=== PATIENT | female | born 1990 | race Caucasian/White ===

== ENCOUNTER 2016-06-09 20:27 | Emergency (ER) | payer OTHER ==
[2016-06-09 20:35] VITALS: RESP 16; TEMP 96.7
[2016-06-09] MEDS ORDERED: SODIUM CHLORIDE 0.9% 2,000 ML IV ONE (21:06)
--- NOTE | 2016-06-09 21:09 | ED ---
General Adult HPI - General Chief complaint: Abdominal Pain Stated complaint: poss kidney stones Source: patient, RN notes reviewed, old records reviewed Mode of arrival: ambulatory Limitations: no limitations - History of Present Illness Initial comments: Chief complaint and history of present illness a 26-year-old female complaint of a probable kidney stone the right side. The discomfort started yesterday in the right side coming and going down toward the right lower quadrant. Patient' s sweaty uptown walking around nausea vomiting. She also has some diarrhea today which further dehydrated her. No fever - Related Data Previous Rx's Medication Instructions Recorded Hydrocodone/Acetaminophen [[place] 1 each PO Q6HR PRN #30 tab 06/09/16 5-325] Ondansetron Odt [Zofran ODT] 4 mg PO Q8HR PRN #5 tab 06/09/16 Tamsulosin [Flomax] 0.4 mg PO DAILY #14 cap 06/09/16 Allergies Allergy/AdvReac Type Severity Reaction Status Date / Time Sulfa (Sulfonamide Allergy Unknown Unknown Verified 06/09/16 20:54 Antibiotics) Childhood Review of Systems ROS Statement: Those systems with pertinent positive or pertinent negative responses have been documented in the HPI. Review of systems no headache or visual acuity changes no chest pain or shortness of breath she has right flank that radiates down toward the right lower quadrant toward the groin area. History kidney stones in the past. Last one was several years ago. Nausea vomiting today all systems are reviewed. Past medical problems kidney stones, surgical history. Family history mother and grandfather both had kidney stones. The patient ALLERGIES to sulfa. Nonsmoker nondrinker. ROS Other: All systems not noted in ROS Statement are negative. Past Medical History Additional Past Medical History / Comment(s): kidney stones History of Any Multi-Drug Resistant Organisms: None Reported Past Surgical History: Cholecystectomy Past Anesthesia/Blood Transfusion Reactions: No Reported Reaction Past Psychological History: Depression Smoking Status: Never smoker Past Alcohol Use History: None Reported Past Drug Use History: None Reported - Past Family History Mother Family Medical History: Unable to Obtain General Exam - General Exam Comments Initial Comments: General: The patient is awake and alert, playing a right flank pain rating up with the right lower quadrant and groin area. Vital signs show temperature 96.7 pulse 85 respiratory rate 16 pulse ox 97% room air blood pressure 131/60. Mildly elevated systolic noted because of pain. Eye: Pupils are equal, round and reactive to light, extra-ocular movements are intact ; there is normal conjunctiva bilaterally. No signs of icterus. Ears, nose, mouth and throat: There are moist mucous membranes and no oral lesions. Neck: The neck is supple, . Cardiovascular: There is a regular rate and rhythm. No murmur, rub or gallop is appreciated. Respiratory: Lungs are clear to auscultation, respirations are non-labored, breath sounds are equal. No wheezes, stridor, rales, or rhonchi. Gastrointestinal: No rash noted along the area pain. Shingles discussed. Discomfort radiates from the right flank area into the right groin area. Patient's up and down and walk around my diaphoretic nausea vomiting and diarrhea. She's had kidney stones made her feel like this in the past. Back: Right flank pain radiating around the front. Musculoskeletal: No peripheral edema. No numbness no tingling. Skin: No rash Limitations: no limitations Course Vital Signs 06/09/16 06/09/16 20:32 21:58 Temperature 96.7 F L Pulse Rate 85 78 Respiratory 16 16 Rate Blood Pressure 131/60 128/74 O2 Sat by Pulse 97 98 Oximetry Medical Decision Making - Medical Decision Making Medical decision-making. Patient's urine shows greater than 180 red blood cells 20 to white cells. Trace leuk esterase. The patient's hemoglobin 15 hematocrit 46 with a white count of 15,000. Potassium 4.3 to BUN 16 creatinine 0.6 and GFR greater than 60. Glucose 96. Amylase lipase within normal limits. X-ray of the abdomen was done and reviewed by radiologist his impression is bowel gas pattern is normal. There is no sign of intestinal obstruction or pneumoperitoneum. Fecal pattern is normal. There is no sign of a mass. There are no pathologic calcifications over the kidneys. Bony structures are intact. Impression: No acute abdomen. No change. As read by Dr. Michael Patient's feeling better rate go home. She'll be placed on Zofran for nausea. [place] for pain and Flomax increased urine output. Advised to follow-up with family physician and her urologist as needed. - Lab Data Result diagrams: 06/09/16 21:16 06/09/16 21:16 Lab Results 06/09/16 06/09/1617 Range/Units 21:16 21:16 21:16 WBC 15.2 H (3.8-10.6) k/uL RBC 5.55 H (3.80-5.40) m/uL Hgb 15.0 (11.4-16.0) gm/dL Hct 46.7 H (34.0-46.0) % MCV 84.0 (80.0-100.0) fL MCH 27.0 (25.0-35.0) pg MCHC 32.1 (31.0-37.0) g/dL RDW 14.4 (11.5-15.5) % Plt Count 336 (150-450) k/uL Neutrophils % 82 % Lymphocytes % 9 % Monocytes % 6 % Eosinophils % 2 % Basophils % 1 % Neutrophils # 12.4 H (1.3-7.7) k/uL Lymphocytes # 1.4 (1.0-4.8) k/uL Monocytes # 0.9 (0-1.0) k/uL Eosinophils # 0.3 (0-0.7) k/uL Basophils # 0.2 (0-0.2) k/uL Sodium 143 (137-145) mmol/L Potassium 4.3 (3.5-5.1) mmol/L Chloride 106 (98-107) mmol/L Carbon Dioxide 23 (22-30) mmol/L Anion Gap 14 mmol/L BUN 16 (7-17) mg/dL Creatinine 0.63 (0.52-1.04) mg/dL Est GFR (MDRD) Af Amer >60 (>60 ml/min/1.73 sqM) Est GFR (MDRD) Non-Af >60 (>60 ml/min/1.73 sqM) Glucose 96 (74-99) mg/dL Calcium 9.8 (8.4-10.2) mg/dL Total Bilirubin 0.7 (0.2-1.3) mg/dL AST 33 (14-36) U/L ALT 50 (9-52) U/L Alkaline Phosphatase 96 (38-126) U/L Total Protein 8.1 (6.3-8.2) g/dL Albumin 4.9 (3.5-5.0) g/dL Amylase <30 L (30-110) U/L Lipase 63 (23-300) U/L Urine Color Light Red Urine Appearance Cloudy H (Clear) Urine pH 5.5 (5.0-8.0) Ur Specific [place] 1.024 (1.001-1.035) Urine Protein 1+ H (Negative) Urine Glucose (UA) Negative (Negative) Urine Ketones 1+ H (Negative) Urine Blood Large H (Negative) Urine Nitrate Negative (Negative) Urine Bilirubin Negative (Negative) Urine Urobilinogen <2.0 (<2.0) mg/dL Ur Leukocyte Esterase Trace H (Negative) Urine RBC >182 H (0-5) /hpf Urine WBC 22 H (0-5) /hpf Ur Squamous Epith Cells 26 H (0-4) /hpf Urine Bacteria Many H (None) /hpf Urine Mucus Few H (None) /hpf Disposition Clinical Impression: Ureterolithiasis Disposition: HOME SELF-CARE Condition: Fair Instructions: Kidney Stones (ED) Additional Instructions: Increase fluid take medications as directed follow up with her family physician return emergency room as needed follow-up with your urologist as needed as well Prescriptions: Hydrocodone/Acetaminophen [[place] 5-325] 1 each PO Q6HR PRN #30 tab PRN Reason: Pain Ondansetron Odt [Zofran ODT] 4 mg PO Q8HR PRN #5 tab PRN Reason: Nausea Tamsulosin [Flomax] 0.4 mg PO DAILY #14 cap Time of Disposition: 23:22
[2016-06-09] MEDS ORDERED: HYDROmorphone 1 MG/ML 1 ML SYRINGE IVP STA ×2 (21:12→22:22)
[2016-06-09] MEDS ORDERED: METOCLOPRAMIDE 5 MG/ML 2 ML VIAL IVP STA ×2 (21:13→23:34)
[2016-06-09] MEDS ORDERED: SODIUM CHLORIDE 0.9% 1,000 ML IV SCH (21:15)
[2016-06-09 21:31] LABS: Basophils # (A) 0.2 k/uL (0-0.2); Basophils % (A) 1 %; CH 28.2; CHCM 33.7; Eosinophils # (A) 0.3 k/uL (0-0.7); Eosinophils % (A) 2 %; HCT 46.7 % (34.0-46.0); HDW 3.06; Luc # (Auto) 0.19; Luc % (Auto) 1; Lymphocytes # (A) 1.4 k/uL (1.0-4.8); Lymphocytes % (A) 9 %; MCHC 32.1 g/dL (31.0-37.0); Mean Platelet Volume 7.1; Monocytes # (A) 0.9 k/uL (0-1.0); Monocytes % (A) 6 %; Neutrophils # (A) 12.4 k/uL (1.3-7.7); Neutrophils % (A) 82 %; RBC 5.55 m/uL (3.80-5.40); RDW 14.4 % (11.5-15.5); WBC 15.2 k/uL (3.8-10.6); WBC (Perox) 15.13
[2016-06-09 21:38] LABS: ALT 50 U/L (9-52); AST 33 U/L (14-36); Alkaline Phosphatase 96 U/L (38-126); Amylase <30 U/L (30-110); Anion Gap 14 mmol/L; Blood Urea Nitrogen 16 mg/dL (7-17); Calcium 9.8 mg/dL (8.4-10.2); Carbon Dioxide 23 mmol/L (22-30); Chloride 106 mmol/L (98-107); Glucose 96 mg/dL (74-99); Non-African American GFR(MDRD) >60 (>60 ml/min/1.73 sqM); Potassium 4.3 mmol/L (3.5-5.1); Sodium 143 mmol/L (137-145); Total Bilirubin 0.7 mg/dL (0.2-1.3); Total Protein 8.1 g/dL (6.3-8.2)
[2016-06-09 21:42] LABS: Appearance,Urine Cloudy (Clear); Bacteria,Urine Many /hpf; Bilirubin,Urine Negative (Negative); Glucose,Urine (UA) Negative (Negative); Ketones,Urine 1+ (Negative); Leukocyte Esterase,Urine Trace (Negative); Mucus,Urine Few /hpf; Nitrite,Urine Negative (Negative); PH, Urine 5.5 (5.0-8.0); Particle Count 19322; Protein,Urine 1+ (Negative); RBC,Urine >182 /hpf (0-5); Specific Gravity,Urine 1.024 (1.001-1.035); Squamous Epithelial Cell,Urine 26 /hpf (0-4); UA Billing (MACRO vs. MICRO) MICRO; Urobilinogen,Urine <2.0 mg/dL (<2.0); WBC,Urine 22 /hpf (0-5)
--- NOTE | 2016-06-09 22:03 | XR ---
EXAMINATION TYPE: XR abdomen 2V DATE OF EXAM: 06/09/2016 9:54 PM COMPARISON: 06/20/2015 HISTORY: Right-sided abdominal pain TECHNIQUE: 3 views FINDINGS: Bowel gas pattern is normal. There is no sign of intestinal obstruction or pneumoperitoneum . Fecal pattern is normal. There is no sign of a mass. There are no pathologic calcifications over th e kidneys. Bony structures are intact. IMPRESSION: Nonacute abdomen. No change.
[2016-06-09 23:28] VITALS: BP 116/68; PULSE 70
== END 2016-06-09 23:53 | disposition home or self-care (01) ==
LOC: EC 20:27
DX: N20.1 Calculus of ureter (principal); Z87.442 Personal history of urinary calculi; Z88.2 Allergy status to sulfonamides
CPT/HCPCS: 99284; 96374; 96375; 96376 ×2; 96361 ×3; 36415; 80053; 82150; 83690; 85025; 81001; 87086; 74020; J2765; J1170

== ENCOUNTER 2017-07-26 04:15 | Emergency (ER) | payer BC, OTHER ==
[2017-07-26] MEDS ORDERED: SODIUM CHLORIDE 0.9% 1,000 ML IV STA (04:33)
[2017-07-26] MEDS ORDERED: KETOROLAC 30 MG/ML 1 ML VIAL IVP STA (04:33)
[2017-07-26] MEDS ORDERED: ONDANSETRON 4 MG/2 ML VIAL IVP STA (04:33)
[2017-07-26] MEDS ORDERED: MORPHINE SULFATE 4 MG/ML SYRINGE IV STA (04:33)
--- NOTE | 2017-07-26 04:36 | ED ---
General Adult HPI - General Chief complaint: Abdominal Pain Stated complaint: Possible Kidney Stone Time Seen by Provider: 07/26/17 04:15 Source: patient, RN notes reviewed Mode of arrival: ambulatory Limitations: no limitations - History of Present Illness Initial comments: This is a 27 her old female presents emergency Department stating she's had kidney stones in the past per patient comes in today stating that she has had pain starting on the left back on Thursday and radiated around to the front the pain seemed to subside but this morning he woke up in the middle the night and it was down by her suprapubic region. Patient states was unbearable so she came to the emergency department. Patient denies any nausea or vomiting per patient denies diarrhea. Patient states palpating the abdomen does not seem to make it worse. Patient states the pain does come and go and when it comes is extremely strong. Patient denies any hematuria or urinary frequency. Patient denies any fever chills. - Related Data Previous Rx's Medication Instructions Recorded Hydrocodone/Acetaminophen [[place] 1 each PO Q6HR PRN #30 tab 06/09/16 5-325] Ondansetron Odt [Zofran ODT] 4 mg PO Q8HR PRN #5 tab 06/09/16 Tamsulosin [Flomax] 0.4 mg PO DAILY #14 cap 06/09/16 Hydrocodone/Acetaminophen [[place] 1 each PO Q4HR PRN #20 tab 07/26/17 5-325] Ketorolac [Toradol] 10 mg PO Q6HR #15 tab 07/26/17 Allergies Allergy/AdvReac Type Severity Reaction Status Date / Time Sulfa (Sulfonamide Allergy Unknown Unknown Verified 07/26/17 04:22 Antibiotics) Childhood Review of Systems ROS Statement: Those systems with pertinent positive or pertinent negative responses have been documented in the HPI. ROS Other: All systems not noted in ROS Statement are negative. Past Medical History Additional Past Medical History / Comment(s): kidney stones History of Any Multi-Drug Resistant Organisms: None Reported Past Surgical History: Cholecystectomy Past Anesthesia/Blood Transfusion Reactions: No Reported Reaction Past Psychological History: Depression Smoking Status: Never smoker Past Alcohol Use History: None Reported Past Drug Use History: None Reported - Past Family History Mother Family Medical History: Unable to Obtain General Exam - General Exam Comments Initial Comments: GENERAL: Patient is well-developed and well-nourished. Patient is nontoxic and well- hydrated and is in moderate distress. ENT: Neck is soft and supple. No significant lymphadenopathy is noted. Oropharynx is clear. Moist mucous membranes. Neck has full range of motion without eliciting any pain. EYES: The sclera were anicteric and conjunctiva were pink and moist. Extraocular movements were intact and pupils were equal round and reactive to light. Eyelids were unremarkable. PULMONARY: Unlabored respirations. Good breath sounds bilaterally. No audible rales rhonchi or wheezing was noted. CARDIOVASCULAR: There is a regular rate and rhythm without any murmurs gallops or rubs. ABDOMEN: Soft and nontender with normal bowel sounds. No palpable organomegaly was noted. There is no palpable pulsatile mass. SKIN: Skin is clear with no lesions or rashes and otherwise unremarkable. NEUROLOGIC: Patient is alert and oriented x3. Cranial nerves II through XII are grossly intact. Motor and sensory are also intact. Normal speech, volume and content. Symmetrical smile. MUSCULOSKELETAL: Normal extremities with adequate strength and full range of motion. LYMPHATICS: No significant lymphadenopathy is noted PSYCHIATRIC: Normal psychiatric evaluation. Limitations: no limitations Course Vital Signs 07/26/17 04:17 Temperature 97 F L Pulse Rate 80 Respiratory 20 Rate O2 Sat by Pulse 99 Oximetry Medical Decision Making - Medical Decision Making CT shows a kidney stone. - Lab Data Result diagrams: 07/26/17 04:38 07/26/17 04:38 Lab Results 07/26/17 07/26/17 07/26/17 Range/Units 04:38 04:38 04:41 WBC 9.1 (3.8-10.6) k/uL RBC 4.91 (3.80-5.40) m/uL Hgb 14.2 (11.4-16.0) gm/dL Hct 43.0 (34.0-46.0) % MCV 87.5 (80.0-100.0) fL MCH 28.9 (25.0-35.0) pg MCHC 33.0 (31.0-37.0) g/dL RDW 13.6 (11.5-15.5) % Plt Count 355 (150-450) k/uL Neutrophils % 56 % Lymphocytes % 32 % Monocytes % 6 % Eosinophils % 3 % Basophils % 1 % Neutrophils # 5.1 (1.3-7.7) k/uL Lymphocytes # 2.9 (1.0-4.8) k/uL Monocytes # 0.6 (0-1.0) k/uL Eosinophils # 0.3 (0-0.7) k/uL Basophils # 0.1 (0-0.2) k/uL Sodium 144 (137-145) mmol/L Potassium 4.0 (3.5-5.1) mmol/L Chloride 107 (98-107) mmol/L Carbon Dioxide 25 (22-30) mmol/L Anion Gap 12 mmol/L BUN 14 (7-17) mg/dL Creatinine 0.65 (0.52-1.04) mg/dL Est GFR (MDRD) Af Amer >60 (>60 ml/min/1.73 sqM) Est GFR (MDRD) Non-Af >60 (>60 ml/min/1.73 sqM) Glucose 110 H (74-99) mg/dL Calcium 9.4 (8.4-10.2) mg/dL Total Bilirubin 0.7 (0.2-1.3) mg/dL AST 22 (14-36) U/L ALT 36 (9-52) U/L Alkaline Phosphatase 88 (38-126) U/L Total Protein 6.9 (6.3-8.2) g/dL Albumin 4.1 (3.5-5.0) g/dL Amylase 31 (30-110) U/L Lipase 80 (23-300) U/L Urine Color Yellow Urine Appearance Cloudy H (Clear) Urine pH 5.5 (5.0-8.0) Ur Specific [place] 1.022 (1.001-1.035) Urine Protein 1+ H (Negative) Urine Glucose (UA) Negative (Negative) Urine Ketones Negative (Negative) Urine Blood Large H (Negative) Urine Nitrite Negative (Negative) Urine Bilirubin Negative (Negative) Urine Urobilinogen <2.0 (<2.0) mg/dL Ur Leukocyte Esterase Small H (Negative) Urine RBC >182 H (0-5) /hpf Urine WBC 20 H (0-5) /hpf Ur Squamous Epith Cells 8 H (0-4) /hpf Urine Bacteria Moderate H (None) /hpf Urine Mucus Many H (None) /hpf Disposition Clinical Impression: Kidney stone Disposition: HOME SELF-CARE Condition: Good Instructions: Kidney Stones (ED) Prescriptions: Hydrocodone/Acetaminophen [[place] 5-325] 1 each PO Q4HR PRN #20 tab PRN Reason: Pain Ketorolac [Toradol] 10 mg PO Q6HR #15 tab Referrals: None,Stated [Primary Care Provider] - 1-2 days Time of Disposition: 06:08
[2017-07-26 04:55] LABS: Basophils # (A) 0.1 k/uL (0-0.2); Basophils % (A) 1 %; Eosinophils # (A) 0.3 k/uL (0-0.7); Eosinophils % (A) 3 %; HGB 14.2 gm/dL (11.4-16.0); Lymphocytes # (A) 2.9 k/uL (1.0-4.8); Lymphocytes % (A) 32 %; MCH 28.9 pg (25.0-35.0); MCV 87.5 fL (80.0-100.0); Mean Platelet Volume 6.3; Monocytes # (A) 0.6 k/uL (0-1.0); Monocytes % (A) 6 %; Neutrophils # (A) 5.1 k/uL (1.3-7.7); Neutrophils % (A) 56 %; Platelet Count 355 k/uL (150-450); RBC 4.91 m/uL (3.80-5.40); RDW 13.6 % (11.5-15.5); WBC 9.1 k/uL (3.8-10.6)
[2017-07-26 04:59] LABS: Appearance,Urine Cloudy (Clear); Bacteria,Urine Moderate /hpf; Bilirubin,Urine Negative (Negative); Blood,Urine Large (Negative); Color,Urine Yellow; Glucose,Urine (UA) Negative (Negative); Ketones,Urine Negative (Negative); Leukocyte Esterase,Urine Small (Negative); Mucus,Urine Many /hpf; PH, Urine 5.5 (5.0-8.0); Protein,Urine 1+ (Negative); RBC,Urine >182 /hpf (0-5); Specific Gravity,Urine 1.022 (1.001-1.035); Squamous Epithelial Cell,Urine 8 /hpf (0-4); Urobilinogen,Urine <2.0 mg/dL (<2.0); WBC,Urine 20 /hpf (0-5)
[2017-07-26 05:15] LABS: ALT 36 U/L (9-52); AST 22 U/L (14-36); Albumin 4.1 g/dL (3.5-5.0); Alkaline Phosphatase 88 U/L (38-126); Amylase 31 U/L (30-110); Anion Gap 12 mmol/L; Blood Urea Nitrogen 14 mg/dL (7-17); Calcium 9.4 mg/dL (8.4-10.2); Carbon Dioxide 25 mmol/L (22-30); Chloride 107 mmol/L (98-107); Glucose 110 mg/dL (74-99); Lipase 80 U/L (23-300); Sodium 144 mmol/L (137-145); Total Bilirubin 0.7 mg/dL (0.2-1.3); Total Protein 6.9 g/dL (6.3-8.2)
--- NOTE | 2017-07-26 05:44 | XR ---
EXAM: XR Abdomen, 1 View CLINICAL HISTORY: ITS.REASON XR Reason: abdominal pain TECHNIQUE: Frontal supine view of the abdomen/pelvis. COMPARISON: CT abdomen pelvis performed 3 minutes prior. FINDINGS: Intraperitoneal space: No evidence of free air. Gastrointestinal tract: Unremarkable. No dilation. Bones/joints: Unremarkable. IMPRESSION: No acute findings.
--- NOTE | 2017-07-26 05:51 | CT ---
EXAM: CT Abdomen and Pelvis Without Intravenous Contrast CLINICAL HISTORY: ITS.REASON CT Reason: abdominal pain TECHNIQUE: Axial computed tomography images of the abdomen and pelvis without intravenous contrast. DLP is 752.4 mGy-cm. This CT exam was performed using one or more of the following dose reduction techniques: automated exposure control, adjustment of the mA and/or kV according to patient size, and/or use of iterative reconstruction technique. COMPARISON: Abdominal radiograph dated 06/20/2015. FINDINGS: Lower thorax: No acute findings. ABDOMEN: Liver: Unremarkable. Gallbladder and bile ducts: Unremarkable. No calcified stones. No ductal dilation. Pancreas: Unremarkable. No ductal dilation. Spleen: Unremarkable. No splenomegaly. Adrenals: Unremarkable. No mass. Kidneys and ureters: Multiple nonobstructing left renal calculi measuring up to 3 mm. 3 mm calcification in the region of the left ureterovesicular junction or layering of within the bladder likely represents a recently passed stone. There is mild left hydroureter but no hydronephrosis. Multiple nonobstructing right renal calculi measuring up to 4 mm. Stomach and bowel: Unremarkable. No obstruction. No mucosal thickening. Appendix: No findings to suggest acute appendicitis. PELVIS: Bladder: Unremarkable. No stones. Reproductive: Unremarkable as visualized. ABDOMEN and PELVIS: Intraperitoneal space: Unremarkable. No free air. No significant fluid collection. Bones/joints: No acute fracture. Soft tissues: Unremarkable. Vasculature: Unremarkable. No abdominal aortic aneurysm. Lymph nodes: Unremarkable. No enlarged lymph nodes. IMPRESSION: 3 mm calculus either at the left ureterovesical junction or layering within the bladder with very mild left hydroureter but no hydronephrosis. Small bilateral nonobstructing renal calculi.
[2017-07-26] MEDS ORDERED: MORPHINE SULFATE 4 MG/ML SYRINGE IVP STA (06:05)
[2017-07-26 06:21] VITALS: BP 108/60; PULSE 58; RESP 18; TEMP 97
== END 2017-07-26 06:29 | disposition home or self-care (01) ==
LOC: EC 04:15
DX: N20.0 Calculus of kidney (principal); Z88.2 Allergy status to sulfonamides; Z90.49 Acquired absence of other specified parts of digestive tract
CPT/HCPCS: 99284; 96374; 96375 ×2; 96376; 96361 ×2; 36415; 80053; 82150; 83690; 85025; 81001; 74018; 74176; J2270; J2405; J1885

== ENCOUNTER 2017-07-26 08:15 | Emergency (ER) | payer BC ==
[2017-07-26 08:20] VITALS: RESP 16
[2017-07-26] MEDS ORDERED: TAMSULOSIN 0.4 MG CAP.ER.24H PO STA (08:33)
[2017-07-26] MEDS ORDERED: MORPHINE SULFATE 4 MG/ML SYRINGE IVP STA (08:33)
[2017-07-26] MEDS ORDERED: SODIUM CHLORIDE 0.9% 500 ML IV STA (08:33)
[2017-07-26] MEDS ORDERED: ACET/COD 300 MG/30 MG STARTER PACK 6 TAB BTL PO STA (08:33)
--- NOTE | 2017-07-26 08:38 | ED ---
Abdominal Pain HPI - General Chief Complaint: Abdominal Pain Stated Complaint: PASSING A KIDNEY STONE Time Seen by Provider: 07/26/17 08:25 Source: patient, RN notes reviewed, old records reviewed Mode of arrival: ambulatory Limitations: no limitations - History of Present Illness Initial Comments: This patient is a 27-year-old female presents emergency department for valvular reevaluation and pain management after she was diagnosed with kidney stone. She was discharged a proximally 2 hours ago, reports that her pharmacy does not open until 9 AM. Patient reports that she was having to severe pain to wait until she sees the pharmacy for further evaluation. Patient states that she was sinus with 3 mm left kidney stone right before the bladder. She reports that every nd she feels a sharp stabbing pain in this region. Patient relates she said history multiple kidney stones in the past. She did have a full workup and CAT scan done a few hours ago. Blood work was all reviewed and within normal limits. Urinalysis showed red blood cells. Signs of infection. Patient's had no fevers or chills or vomiting. She reports he did feel nauseated. - Related Data Previous Rx's Medication Instructions Recorded Hydrocodone/Acetaminophen [[place] 1 each PO Q4HR PRN #20 tab 07/26/17 5-325] Ketorolac [Toradol] 10 mg PO Q6HR #15 tab 07/26/17 Tamsulosin [Flomax] 0.4 mg PO DAILY #10 cap 07/26/17 Allergies Allergy/AdvReac Type Severity Reaction Status Date / Time Sulfa (Sulfonamide Allergy Unknown Unknown Verified 07/26/17 08:20 Antibiotics) Childhood Review of Systems ROS Statement: Those systems with pertinent positive or pertinent negative responses have been documented in the HPI. ROS Other: All systems not noted in ROS Statement are negative. Past Medical History Additional Past Medical History / Comment(s): kidney stones History of Any Multi-Drug Resistant Organisms: None Reported Past Surgical History: Cholecystectomy Past Anesthesia/Blood Transfusion Reactions: No Reported Reaction Past Psychological History: Depression Smoking Status: Never smoker Past Alcohol Use History: None Reported Past Drug Use History: None Reported - Past Family History Mother Family Medical History: Unable to Obtain General Exam - General Exam Comments Initial Comments: This patient is a 27-year-old female. No acute distress. Limitations: no limitations General appearance: alert, in no apparent distress Head exam: Present: atraumatic, normocephalic, normal inspection Eye exam: Present: normal appearance ENT exam: Present: normal exam, mucous membranes moist Neck exam: Present: normal inspection. Absent: tenderness, meningismus, lymphadenopathy Respiratory exam: Present: normal lung sounds bilaterally. Absent: respiratory distress, wheezes, rales, rhonchi, stridor Cardiovascular Exam: Present: regular rate, normal rhythm, normal heart sounds. Absent: systolic murmur, diastolic murmur, rubs, gallop, clicks GI/Abdominal exam: Present: soft, tenderness (Left-sided lower quadrant/ suprapubic tenderness.), normal bowel sounds. Absent: distended, guarding, rebound, rigid Extremities exam: Present: normal inspection, full ROM, normal capillary refill. Absent: tenderness, pedal edema, joint swelling, calf tenderness Back exam: Present: normal inspection, CVA tenderness (L) Neurological exam: Present: alert, oriented X3, CN II-XII intact Psychiatric exam: Present: normal affect, normal mood Skin exam: Present: warm, dry, intact, normal color. Absent: rash Course Vital Signs 07/26/17 08:17 Temperature 97.8 F Pulse Rate 89 Respiratory 16 Rate Blood Pressure 144/71 O2 Sat by Pulse 100 Oximetry Medical Decision Making - Medical Decision Making This is a 27-year-old female for revisit for kidney stone pain. She was discharged here a few hours ago diagnosis of kidney stone. Discharged with pain medicine however she could not "pharmacy and filled. She is here for pain management. At this time patient appears in no acute distress. Patient is given another liter bolus and pain medicine. Discussed that she had laboratory done a few hours ago no need to repeat it at this time. Patient also was given Flomax. I will discharge her with prescription for Flomax to help with her pain is well. Discussed appropriate follow-up with urology. understands treatment plan will comply. Return parameters were discussed. Disposition Clinical Impression: Ureteral stone Disposition: HOME SELF-CARE Condition: Good Instructions: Ureteral Stones (ED) Additional Instructions: Patient advised to follow-up with primary care provider. Return to emergency department if any alarming signs or symptoms occur. Follow-up with urology as well. Rest, remain hydrated. Take the pain medicine as prescribed. Prescriptions: Tamsulosin [Flomax] 0.4 mg PO DAILY #10 cap Referrals: None,Stated [Primary Care Provider] - 1-2 days Margarito Rubin MD [STAFF PHYSICIAN] - 1-2 days Time of Disposition: 09:13
[2017-07-26 09:26] VITALS: BP 108/52; PULSE 67; TEMP 98
== END 2017-07-26 09:24 | disposition home or self-care (01) ==
LOC: EC 08:15
DX: N20.2 Calculus of kidney with calculus of ureter (principal); Z88.2 Allergy status to sulfonamides; Z90.49 Acquired absence of other specified parts of digestive tract
CPT/HCPCS: 99284; 96374; 96361; J2270

== ENCOUNTER 2018-01-22 13:37 | Emergency (ER) | payer BC, OTHER ==
[2018-01-22 14:49] VITALS: TEMP 98.1
[2018-01-22 15:12] LABS: Appearance,Urine Cloudy (Clear); Bacteria,Urine Few /hpf; Bilirubin,Urine Negative (Negative); Blood,Urine Large (Negative); Color,Urine Light Yellow; Glucose,Urine (UA) Negative (Negative); Ketones,Urine Negative (Negative); Leukocyte Esterase,Urine Negative (Negative); Mucus,Urine Rare /hpf; Nitrite,Urine Negative (Negative); PH, Urine 6.5 (5.0-8.0); Protein,Urine Negative (Negative); RBC,Urine >182 /hpf (0-5); Specific Gravity,Urine 1.009 (1.001-1.035); Squamous Epithelial Cell,Urine 3 /hpf (0-4); Urobilinogen,Urine <2.0 mg/dL (<2.0)
[2018-01-22 15:25] LABS: Basophils # (A) 0.1 k/uL (0-0.2); Basophils % (A) 1 %; Eosinophils # (A) 0.3 k/uL (0-0.7); Eosinophils % (A) 3 %; HGB 14.3 gm/dL (11.4-16.0); Lymphocytes # (A) 2.3 k/uL (1.0-4.8); Lymphocytes % (A) 25 %; MCH 28.6 pg (25.0-35.0); MCHC 33.4 g/dL (31.0-37.0); MCV 85.7 fL (80.0-100.0); Mean Platelet Volume 6.5; Monocytes # (A) 0.4 k/uL (0-1.0); Monocytes % (A) 5 %; Neutrophils # (A) 6.1 k/uL (1.3-7.7); Neutrophils % (A) 66 %; Platelet Count 330 k/uL (150-450); RBC 5.01 m/uL (3.80-5.40); RDW 13.6 % (11.5-15.5); WBC 9.3 k/uL (3.8-10.6)
[2018-01-22] MEDS ORDERED: KETOROLAC 30 MG/ML 1 ML VIAL IVP STA (15:29)
[2018-01-22] MEDS ORDERED: SODIUM CHLORIDE 0.9% 1,000 ML IV ONE (15:29)
[2018-01-22] MEDS ORDERED: HYDROmorphone 0.5 MG/0.5 ML SYRINGE IVP STA (15:29)
[2018-01-22 15:33] LABS: ALT 41 U/L (9-52); AST 25 U/L (14-36); Albumin 4.3 g/dL (3.5-5.0); Alkaline Phosphatase 77 U/L (38-126); Amylase 34 U/L (30-110); Anion Gap 9 mmol/L; Blood Urea Nitrogen 13 mg/dL (7-17); Calcium 9.7 mg/dL (8.4-10.2); Carbon Dioxide 26 mmol/L (22-30); Chloride 105 mmol/L (98-107); Glucose 85 mg/dL (74-99); Lipase 45 U/L (23-300); Sodium 140 mmol/L (137-145); Total Bilirubin 0.9 mg/dL (0.2-1.3); Total Protein 7.4 g/dL (6.3-8.2)
--- NOTE | 2018-01-22 16:15 | ED ---
Abdominal Pain HPI - General Chief Complaint: Abdominal Pain Stated Complaint: Abd Pain/Vomiting Time Seen by Provider: 01/22/18 15:16 Source: patient Mode of arrival: ambulatory Limitations: no limitations - History of Present Illness Initial Comments: This is a 27 show female with a history of kidney stones who presents emergency department for left-sided flank pain. She states it's been present for the last 3 days intermittently. She states it feels similar to previous kidney stones. She states that typically she will take Flomax and fight this at home however the pain is persisted and she feels like the kidney stone is "stuck". She states that she decided come emergency department when it was getting worse and would not resolve on its own. She does admit to some nausea without vomiting. No fevers or chills. No dysuria or hematuria. No other acute complaints. - Related Data Home Medications Medication Instructions Recorded Confirmed Cetirizine HCl [Zyrtec] 10 mg PO DAILY 07/26/17 01/22/18 Previous Rx's Medication Instructions Recorded HYDROcodone/APAP 5-325MG [[place] 1 tab PO Q6HR PRN 3 Days #12 tab 01/22/18 5-325] Tamsulosin HCl [Flomax] 0.4 mg PO DAILY #14 capsule 01/22/18 Allergies Allergy/AdvReac Type Severity Reaction Status Date / Time Sulfa (Sulfonamide Allergy Unknown Unknown Verified 01/22/18 15:41 Antibiotics) Childhood Review of Systems ROS Statement: Those systems with pertinent positive or pertinent negative responses have been documented in the HPI. ROS Other: All systems not noted in ROS Statement are negative. Past Medical History Additional Past Medical History / Comment(s): kidney stones History of Any Multi-Drug Resistant Organisms: None Reported Past Surgical History: Cholecystectomy Past Anesthesia/Blood Transfusion Reactions: No Reported Reaction Past Psychological History: Depression Smoking Status: Current every day smoker Past Alcohol Use History: None Reported Past Drug Use History: None Reported - Past Family History Mother Family Medical History: Unable to Obtain General Exam - General Exam Comments Initial Comments: Constitutional: Awake alert appears uncomfortable and is pacing around the room Head: Normocephalic atraumatic Eyes: no conjunctival injection No scleral icterus EOMI Neck: No JVD Supple Heart: Regular rate rhythm normal S1-S2 no murmurs Lungs: Clear to auscultation bilaterally No wheezing No rales Abdomen: Soft nondistended nontender, there is left CVA tenderness Extremities: Non edematous DP pulses intact Radial pulses intact Neuro: A&Ox3 No focal neurologic deficits Psych: Appropriate mood and affect Limitations: no limitations Course Vital Signs 01/22/18 14:44 Temperature 98.1 F Pulse Rate 76 Respiratory 20 Rate Blood Pressure 125/65 O2 Sat by Pulse 98 Oximetry Medical Decision Making - Medical Decision Making This is a 27-year-old female who presents emergency department for left flank pain. She was found have a 6 mm left ureteral stone with mild hydronephrosis. No evidence for UTI on urinalysis. The patient's pain was controlled emergency department. She will be sent home with Flomax and [place] for pain. She was given Dr. Maldonado information for follow-up. Told to return if she has worsening symptoms or uncontrolled pain. All cautions were answered. - Lab Data Result diagrams: 01/22/18 15:15 01/22/18 15:15 Lab Results 01/22/18 01/22/18 01/22/18 Range/Units 12:57 12:57 15:15 WBC (3.8-10.6) k/uL RBC (3.80-5.40) m/uL Hgb (11.4-16.0) gm/dL Hct (34.0-46.0) % MCV (80.0-100.0) fL MCH (25.0-35.0) pg MCHC (31.0-37.0) g/dL RDW (11.5-15.5) % Plt Count (150-450) k/uL Neutrophils % % Lymphocytes % % Monocytes % % Eosinophils % % Basophils % % Neutrophils # (1.3-7.7) k/uL Lymphocytes # (1.0-4.8) k/uL Monocytes # (0-1.0) k/uL Eosinophils # (0-0.7) k/uL Basophils # (0-0.2) k/uL Sodium 140 (137-145) mmol/L Potassium 4.0 (3.5-5.1) mmol/L Chloride 105 (98-107) mmol/L Carbon Dioxide 26 (22-30) mmol/L Anion Gap 9 mmol/L BUN 13 (7-17) mg/dL Creatinine 0.70 (0.52-1.04) mg/dL Est GFR (CKD-EPI)AfAm >90 (>60 ml/min/1.73 sqM) Est GFR (CKD-EPI)NonAf >90 (>60 ml/min/1.73 sqM) Glucose 85 (74-99) mg/dL Calcium 9.7 (8.4-10.2) mg/dL Total Bilirubin 0.9 (0.2-1.3) mg/dL AST 25 (14-36) U/L ALT 41 (9-52) U/L Alkaline Phosphatase 77 (38-126) U/L Total Protein 7.4 (6.3-8.2) g/dL Albumin 4.3 (3.5-5.0) g/dL Amylase 34 (30-110) U/L Lipase 45 (23-300) U/L Urine Color Light Yellow Urine Appearance Cloudy H (Clear) Urine pH 6.5 (5.0-8.0) Ur Specific [place] 1.009 (1.001-1.035) Urine Protein Negative (Negative) Urine Glucose (UA) Negative (Negative) Urine Ketones Negative (Negative) Urine Blood Large H (Negative) Urine Nitrite Negative (Negative) Urine Bilirubin Negative (Negative) Urine Urobilinogen <2.0 (<2.0) mg/dL Ur Leukocyte Esterase Negative (Negative) Urine RBC >182 H (0-5) /hpf Ur Squamous Epith Cells 3 (0-4) /hpf Urine Bacteria Few H (None) /hpf Urine Mucus Rare H (None) /hpf Urine HCG, Qual Not Detected (Not Detectd) 01/22/18 Range/Units 15:15 WBC 9.3 (3.8-10.6) k/uL RBC 5.01 (3.80-5.40) m/uL Hgb 14.3 (11.4-16.0) gm/dL Hct 43.0 (34.0-46.0) % MCV 85.7 (80.0-100.0) fL MCH 28.6 (25.0-35.0) pg MCHC 33.4 (31.0-37.0) g/dL RDW 13.6 (11.5-15.5) % Plt Count 330 (150-450) k/uL Neutrophils % 66 % Lymphocytes % 25 % Monocytes % 5 % Eosinophils % 3 % Basophils % 1 % Neutrophils # 6.1 (1.3-7.7) k/uL Lymphocytes # 2.3 (1.0-4.8) k/uL Monocytes # 0.4 (0-1.0) k/uL Eosinophils # 0.3 (0-0.7) k/uL Basophils # 0.1 (0-0.2) k/uL Sodium (137-145) mmol/L Potassium (3.5-5.1) mmol/L Chloride (98-107) mmol/L Carbon Dioxide (22-30) mmol/L Anion Gap mmol/L BUN (7-17) mg/dL Creatinine (0.52-1.04) mg/dL Est GFR (CKD-EPI)AfAm (>60 ml/min/1.73 sqM) Est GFR (CKD-EPI)NonAf (>60 ml/min/1.73 sqM) Glucose (74-99) mg/dL Calcium (8.4-10.2) mg/dL Total Bilirubin (0.2-1.3) mg/dL AST (14-36) U/L ALT (9-52) U/L Alkaline Phosphatase (38-126) U/L Total Protein (6.3-8.2) g/dL Albumin (3.5-5.0) g/dL Amylase (30-110) U/L Lipase (23-300) U/L Urine Color Urine Appearance (Clear) Urine pH (5.0-8.0) Ur Specific [place] (1.001-1.035) Urine Protein (Negative) Urine Glucose (UA) (Negative) Urine Ketones (Negative) Urine Blood (Negative) Urine Nitrite (Negative) Urine Bilirubin (Negative) Urine Urobilinogen (<2.0) mg/dL Ur Leukocyte Esterase (Negative) Urine RBC (0-5) /hpf Ur Squamous Epith Cells (0-4) /hpf Urine Bacteria (None) /hpf Urine Mucus (None) /hpf Urine HCG, Qual (Not Detectd) Disposition Clinical Impression: Ureterolithiasis Disposition: HOME SELF-CARE Condition: Stable Instructions: Ureteral Stones (ED) Prescriptions: HYDROcodone/APAP 5-325MG [[place] 5-325] 1 tab PO Q6HR PRN 3 Days #12 tab PRN Reason: Pain Tamsulosin HCl [Flomax] 0.4 mg PO DAILY #14 capsule Is patient prescribed a controlled substance at d/c from ED?: Yes When asked, does pt state using other controlled substances?: No If prescribed controlled substance>3 days was MAPS reviewed?: Prescribed <3 Days If opioid is for acute pain is fill amount 7 days or less?: Yes If Rx opioid, was Start Talking consent form obtained?: No Referrals: Paul Granger DO [Primary Care Provider] - 1-2 days Margarito Rubin MD [STAFF PHYSICIAN] - 1-2 days
[2018-01-22] MEDS ORDERED: HYDROmorphone 1 MG/ML 1 ML SYRINGE IVP STA (17:19)
[2018-01-22] MEDS ORDERED: TAMSULOSIN 0.4 MG CAP.ER.24H PO STA (17:20)
--- NOTE | 2018-01-22 17:52 | CT ---
EXAMINATION TYPE: CT abdomen pelvis wo con DATE OF EXAM: 01/22/2018 COMPARISON: 07/26/2017 HISTORY: left flank pain, hx of renal stones CT DLP: 1000 mGycm Automated exposure control for dose reduction was used. TECHNIQUE: Helical acquisition of images was performed from the lung bases through the pelvis. FINDINGS: Lung bases are clear. There is no pleural effusion. Heart size is normal. Liver spleen pancreas appear normal. Bile ducts are not dilated. There is no adrenal mass. Gallbladde r is absent. The kidneys have normal size and contour. There is minimal left-sided hydronephrosis and hydroureter. There is 6 mm calculus in the pelvis on axial image 111 that is apparently a stone in t he lower left ureter. There are multiple calculi in both kidneys that measure up to 6 mm. There is no retroperitoneal adenopathy. Appendix appears normal. There is no ascites. There is no intestinal wall thickening. There are no dilated loops. Bladder dist ends smoothly. Uterus is anteverted. There is no free fluid in the pelvis. There is no sign of a pelv ic mass. There is no evidence of pneumoperitoneum. There is no focal bony destructive process. IMPRESSION: Multiple renal calculi. Obstructing calculus in the lower left ureter with minimal left-sided hydronephrosis and hydroureter. Normal appendix.
[2018-01-22 18:08] VITALS: BP 118/71; PULSE 51; RESP 17
== END 2018-01-22 18:15 | disposition home or self-care (01) ==
LOC: EC 13:37
DX: N13.2 Hydronephrosis with renal and ureteral calculous obstruction (principal); F17.200 Nicotine dependence, unspecified, uncomplicated; Z79.899 Other long term (current) drug therapy; Z88.2 Allergy status to sulfonamides; Z90.49 Acquired absence of other specified parts of digestive tract
CPT/HCPCS: 36415; 80053; 82150; 83690; 85025; 81001; 81025; 74176; 99284; 96374; 96375; 96376; 96361 ×2; J1885; J1170 ×2

== ENCOUNTER → 2018-03-04 | Outpatient (CLI) | payer OTHER ==
--- NOTE | 2018-03-04 13:27 | XR ---
Abdomen HISTORY: Kidney stones Frontal view of the abdomen correlated to prior exam September 25, 2017, prior CT 01/22/2018 Lung bases are clear. No evident bowel obstruction or pneumoperitoneum. Bone mineralization is normal . Oval calcification is superimposed over the lower pole of the right kidney measuring approximately 5 mm. The punctate upper pole calcification within the left kidney seen on CT is not seen definitivel y but may be present superimposed by the 12th rib on the left measures approximately 3 mm. Calcificat ions within the pelvis are present, distal left ureteral calculus likely present measuring approximat gabriela 4 mm. Slight spinal curvature. IMPRESSION: Bilateral nephrolithiasis, probable distal left ureteral calculus.
== END | disposition home or self-care (01) ==
LOC: RADXRMAIN 09:26
PROVIDERS: ATTEND Urology
DX: N20.0 Calculus of kidney (principal)
CPT/HCPCS: 74018

== ENCOUNTER → 2018-07-13 | Outpatient (CLI) | payer OTHER | LOC: LABWHC1 17:18 | PROVIDERS: ATTEND Obstetrics & Gynecology | DX: O26.819 Pregnancy related exhaustion and fatigue, unspecified trimester (principal); Z3A.00 Weeks of gestation of pregnancy not specified | CPT/HCPCS: 36415; 84702 ==

== ENCOUNTER 2018-07-21 13:04 | Emergency (ER) | payer OTHER ==
[2018-07-21 13:11] VITALS: TEMP 97.9
[2018-07-21] MEDS ORDERED: SODIUM CHLORIDE 0.9% 1,000 ML IV STA (13:38)
--- NOTE | 2018-07-21 13:58 | ED ---
General Adult HPI - General Chief complaint: Vaginal Bleeding Stated complaint: Early bleeding Time Seen by Provider: 07/21/18 13:18 Source: patient, RN notes reviewed Mode of arrival: ambulatory Limitations: no limitations - History of Present Illness Initial comments: 28-year-old female presents to the emergency department for a chief complaint of vaginal bleeding. Patient states she had 3 positive test at home. Patient states her periods are very irregular and she has not had a period since the past 3 months. She states that today she started having pelvic cramping and bleeding. She became concerned she may have a miscarriage so called her doctor who told her to present to the emergency department. Patient currently follows with Dr. Wyatt. Patient states a few weeks ago she had an hCG of 39. About a week later she had an hCG of 888.Patient has no other complaints at this time including shortness of breath, chest pain, nausea or vomiting, headache, or visual changes. - Related Data Home Medications Medication Instructions Recorded Confirmed Cetirizine HCl [Zyrtec] 10 mg PO DAILY 07/26/17 07/21/18 Jsr-Vgog-Egnzh Acid 1 cap PO DAILY 07/21/18 07/21/18 [-U Capsule (formulary)] Previous Rx's Medication Instructions Recorded Cephalexin [Keflex] 500 mg PO Q6HR 3 Days #12 cap 07/21/18 Allergies Allergy/AdvReac Type Severity Reaction Status Date / Time Sulfa (Sulfonamide Allergy Unknown Unknown Verified 07/21/18 13:38 Antibiotics) Childhood Review of Systems ROS Statement: Those systems with pertinent positive or pertinent negative responses have been documented in the HPI. ROS Other: All systems not noted in ROS Statement are negative. Past Medical History Additional Past Medical History / Comment(s): kidney stones History of Any Multi-Drug Resistant Organisms: None Reported Past Surgical History: Cholecystectomy Past Anesthesia/Blood Transfusion Reactions: No Reported Reaction Past Psychological History: Depression Smoking Status: Current every day smoker Past Alcohol Use History: None Reported Past Drug Use History: None Reported - Past Family History Mother Family Medical History: Unable to Obtain General Exam Limitations: no limitations General appearance: alert, in no apparent distress Head exam: Present: atraumatic, normocephalic, normal inspection Eye exam: Present: normal appearance, PERRL, EOMI. Absent: scleral icterus, conjunctival injection, periorbital swelling ENT exam: Present: normal exam, mucous membranes moist Neck exam: Present: normal inspection. Absent: tenderness, meningismus, lymphadenopathy Respiratory exam: Present: normal lung sounds bilaterally. Absent: respiratory distress, wheezes, rales, rhonchi, stridor Cardiovascular Exam: Present: regular rate, normal rhythm, normal heart sounds. Absent: systolic murmur, diastolic murmur, rubs, gallop, clicks GI/Abdominal exam: Present: soft, normal bowel sounds. Absent: distended, tenderness, guarding, rebound, rigid External exam: Present: other (refused) Neurological exam: Present: alert, oriented X3, CN II-XII intact Psychiatric exam: Present: normal affect, normal mood Course Vital Signs 07/21/18 13:08 Temperature 97.9 F Pulse Rate 96 Respiratory 16 Rate Blood Pressure 118/76 O2 Sat by Pulse 97 Oximetry Medical Decision Making - Medical Decision Making 28-year-old female presents for a chief clinic vaginal bleeding x 1 day. Unsure of when she became . Last had her period 3 months ago but is irregular. CBC CMP unremarkable. HCG Quant 7994 which is increased since patient's last reading of 888 approximately 8 days ago. Ultrasound does show an intrauterine [place] without CRL which is possibly's not seen due to early . Ultrasound impression shows findings that could possibly her present early gestation. Patient is already established with Dr. Wyatt. I did review her prescription to repeat her beta hCG which she will do. Discussed threatened miscarriage diagnosis. Patient aware and all questions answered. - Lab Data Result diagrams: 07/21/18 14:24 07/21/18 14:24 Lab Results 07/21/18 07/21/18 07/21/18 Range/Units 14:24 14:24 14:24 WBC 10.1 (3.8-10.6) k/uL RBC 4.70 (3.80-5.40) m/uL Hgb 13.6 (11.4-16.0) gm/dL Hct 40.6 (34.0-46.0) % MCV 86.3 (80.0-100.0) fL MCH 28.9 (25.0-35.0) pg MCHC 33.5 (31.0-37.0) g/dL RDW 14.1 (11.5-15.5) % Plt Count 307 (150-450) k/uL Neutrophils % 68 % Lymphocytes % 22 % Monocytes % 5 % Eosinophils % 2 % Basophils % 1 % Neutrophils # 6.9 (1.3-7.7) k/uL Lymphocytes # 2.2 (1.0-4.8) k/uL Monocytes # 0.5 (0-1.0) k/uL Eosinophils # 0.2 (0-0.7) k/uL Basophils # 0.1 (0-0.2) k/uL Sodium 139 (137-145) mmol/L Potassium 4.2 (3.5-5.1) mmol/L Chloride 108 H (98-107) mmol/L Carbon Dioxide 23 (22-30) mmol/L Anion Gap 8 mmol/L BUN 11 (7-17) mg/dL Creatinine 0.54 (0.52-1.04) mg/dL Est GFR (CKD-EPI)AfAm >90 (>60 ml/min/1.73 sqM) Est GFR (CKD-EPI)NonAf >90 (>60 ml/min/1.73 sqM) Glucose 89 (74-99) mg/dL Calcium 9.1 (8.4-10.2) mg/dL Total Bilirubin 0.6 (0.2-1.3) mg/dL AST 26 (14-36) U/L ALT 39 (9-52) U/L Alkaline Phosphatase 84 (38-126) U/L Total Protein 6.9 (6.3-8.2) g/dL Albumin 4.1 (3.5-5.0) g/dL HCG, Quant 7994.7 mIU/mL Urine Color Urine Appearance (Clear) Urine pH (5.0-8.0) Ur Specific [place] (1.001-1.035) Urine Protein (Negative) Urine Glucose (UA) (Negative) Urine Ketones (Negative) Urine Blood (Negative) Urine Nitrite (Negative) Urine Bilirubin (Negative) Urine Urobilinogen (<2.0) mg/dL Ur Leukocyte Esterase (Negative) Urine WBC (0-5) /hpf Ur Squamous Epith Cells (0-4) /hpf Amorphous Sediment (None) /hpf Urine Bacteria (None) /hpf Urine Mucus (None) /hpf Urine Sperm (None) /hpf Blood Type O Positive Blood Type Recheck No 07/21/18 Range/Units 14:31 WBC (3.8-10.6) k/uL RBC (3.80-5.40) m/uL Hgb (11.4-16.0) gm/dL Hct (34.0-46.0) % MCV (80.0-100.0) fL MCH (25.0-35.0) pg MCHC (31.0-37.0) g/dL RDW (11.5-15.5) % Plt Count (150-450) k/uL Neutrophils % % Lymphocytes % % Monocytes % % Eosinophils % % Basophils % % Neutrophils # (1.3-7.7) k/uL Lymphocytes # (1.0-4.8) k/uL Monocytes # (0-1.0) k/uL Eosinophils # (0-0.7) k/uL Basophils # (0-0.2) k/uL Sodium (137-145) mmol/L Potassium (3.5-5.1) mmol/L Chloride (98-107) mmol/L Carbon Dioxide (22-30) mmol/L Anion Gap mmol/L BUN (7-17) mg/dL Creatinine (0.52-1.04) mg/dL Est GFR (CKD-EPI)AfAm (>60 ml/min/1.73 sqM) Est GFR (CKD-EPI)NonAf (>60 ml/min/1.73 sqM) Glucose (74-99) mg/dL Calcium (8.4-10.2) mg/dL Total Bilirubin (0.2-1.3) mg/dL AST (14-36) U/L ALT (9-52) U/L Alkaline Phosphatase (38-126) U/L Total Protein (6.3-8.2) g/dL Albumin (3.5-5.0) g/dL HCG, Quant mIU/mL Urine Color Yellow Urine Appearance Cloudy H (Clear) Urine pH 6.5 (5.0-8.0) Ur Specific [place] 1.017 (1.001-1.035) Urine Protein Trace H (Negative) Urine Glucose (UA) Negative (Negative) Urine Ketones Negative (Negative) Urine Blood Negative (Negative) Urine Nitrite Negative (Negative) Urine Bilirubin Negative (Negative) Urine Urobilinogen <2.0 (<2.0) mg/dL Ur Leukocyte Esterase Moderate H (Negative) Urine WBC 8 H (0-5) /hpf Ur Squamous Epith Cells 45 H (0-4) /hpf Amorphous Sediment Rare H (None) /hpf Urine Bacteria Occasional H (None) /hpf Urine Mucus Occasional H (None) /hpf Urine Sperm Rare (None) /hpf Blood Type Blood Type Recheck Disposition Clinical Impression: Threatened miscarriage Disposition: HOME SELF-CARE Condition: Good Instructions (If sedation given, give patient instructions): Threatened Miscarriage (ED) Additional Instructions: Please have hCG repeated on July 23. Please follow-up with Dr. Wyatt. Please return here to the emergency department if you have any worsening symptoms. Prescriptions: Cephalexin [Keflex] 500 mg PO Q6HR 3 Days #12 cap Is patient prescribed a controlled substance at d/c from ED?: No Referrals: Paul Granger DO [Primary Care Provider] - 1-2 days Terri Wyatt DO [Doctor of Osteopathic Medicine] - 1-2 days Time of Disposition: 16:48
[2018-07-21 14:44] LABS: Basophils # (A) 0.1 k/uL (0-0.2); Basophils % (A) 1 %; Eosinophils # (A) 0.2 k/uL (0-0.7); Eosinophils % (A) 2 %; HCT 40.6 % (34.0-46.0); HGB 13.6 gm/dL (11.4-16.0); Lymphocytes # (A) 2.2 k/uL (1.0-4.8); Lymphocytes % (A) 22 %; MCH 28.9 pg (25.0-35.0); MCHC 33.5 g/dL (31.0-37.0); MCV 86.3 fL (80.0-100.0); Mean Platelet Volume 6.4; Monocytes # (A) 0.5 k/uL (0-1.0); Monocytes % (A) 5 %; Neutrophils # (A) 6.9 k/uL (1.3-7.7); Neutrophils % (A) 68 %; Platelet Count 307 k/uL (150-450); RDW 14.1 % (11.5-15.5); WBC 10.1 k/uL (3.8-10.6)
[2018-07-21 14:54] LABS: ALT 39 U/L (9-52); AST 26 U/L (14-36); Albumin 4.1 g/dL (3.5-5.0); Alkaline Phosphatase 84 U/L (38-126); Anion Gap 8 mmol/L; Blood Urea Nitrogen 11 mg/dL (7-17); Calcium 9.1 mg/dL (8.4-10.2); Carbon Dioxide 23 mmol/L (22-30); Chloride 108 mmol/L (98-107); Glucose 89 mg/dL (74-99); Potassium 4.2 mmol/L (3.5-5.1); Sodium 139 mmol/L (137-145); Total Bilirubin 0.6 mg/dL (0.2-1.3); Total Protein 6.9 g/dL (6.3-8.2)
[2018-07-21 14:58] LABS: Amorphous Sediment,Urine Rare /hpf; Appearance,Urine Cloudy (Clear); Bacteria,Urine Occasional /hpf; Bilirubin,Urine Negative (Negative); Blood,Urine Negative (Negative); Color,Urine Yellow; Glucose,Urine (UA) Negative (Negative); Ketones,Urine Negative (Negative); Leukocyte Esterase,Urine Moderate (Negative); Mucus,Urine Occasional /hpf; Nitrite,Urine Negative (Negative); PH, Urine 6.5 (5.0-8.0); Protein,Urine Trace (Negative); Specific Gravity,Urine 1.017 (1.001-1.035); Sperm,Urine Rare /hpf; Squamous Epithelial Cell,Urine 45 /hpf (0-4); Urobilinogen,Urine <2.0 mg/dL (<2.0); WBC,Urine 8 /hpf (0-5)
[2018-07-21 15:09] LABS: HCG,Quantitative Serum 7994.7 mIU/mL
--- NOTE | 2018-07-21 15:46 | US ---
EXAMINATION TYPE: Transabdominal DATE OF EXAM: 07/21/2018 2:58 PM COMPARISON: NONE CLINICAL HISTORY: Pain. Unknown LMP, spotting EXAM PERFORMED: Transvaginal (TV) and Transabdominal (TA), endovaginal scanning performed for better evaluation of the , grayscale and color Doppler imaging performed. EXAM MEASUREMENTS: GESTATIONAL AGE / DATING Dates by LMP: LMP unknown Dates by Current Scan for: Unable to date by today's study MATERNAL ANATOMY Uterus: 8.4 x 5.4 x 4.7 cm Right Ovary: 3.4 x 2.1 x 1.9 cm Left Ovary: 3.0 x 2.2 x 1.6 cm, color flow noted to the ovaries Post CDS / Adnexa: no free fluid Presence of free fluid: no Presence of corpus luteal cyst: right ovarian lesion visualized= 1.8 x 1.6 x 1.7 cm Presence of subchorionic bleed: no GESTATION / SURVEY CRL: Not visualized MSD: 1.0 cm, too early to determine dates Yolk Sac (normal less than 6mm): 2.0 mm IUP: GS and Y[place] visualized, no CRL seen Date of LMP: Unknown LMP, Beta HcG (if available): Not available at this time GS and YS visualized. No CRL seen possibly due to early . IMPRESSION: Findings could possibly represent early gestation, follow-up as indicated
[2018-07-21 17:20] VITALS: BP 126/65; PULSE 81; RESP 18
== END 2018-07-21 17:20 | disposition home or self-care (01) ==
LOC: EC 13:04
DX: O20.0 Threatened abortion (principal); Z3A.00 Weeks of gestation of pregnancy not specified; F17.200 Nicotine dependence, unspecified, uncomplicated; Z79.899 Other long term (current) drug therapy; Z88.2 Allergy status to sulfonamides
CPT/HCPCS: 36415; 76801; 76817; 80053; 81001; 84702; 85025; 86900; 86901; 87086; 96360; 96361; 99284

== ENCOUNTER → 2018-07-24 | Outpatient (CLI) | payer OTHER | END | disposition home or self-care (01) | LOC: LABWHC1 09:36 | PROVIDERS: ATTEND Physician Assistant Medical | DX: O20.0 Threatened abortion (principal); Z3A.00 Weeks of gestation of pregnancy not specified | CPT/HCPCS: 36415; 84702 ==

== ENCOUNTER 2018-12-10 12:05 | Outpatient (CLI) | payer OTHER ==
[2018-12-10 12:37] VITALS: BP 116/58; PULSE 91; RESP 18; TEMP 97.4
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
== END 2018-12-10 13:12 | disposition home or self-care (01) ==
LOC: FBPOP 12:05
PROVIDERS: ATTEND Obstetrics & Gynecology
DX: O99.89 Other specified diseases and conditions complicating pregnancy, childbirth and the puerperium (principal); G89.11 Acute pain due to trauma; Z3A.25 25 weeks gestation of pregnancy
CPT/HCPCS: 99213

== ENCOUNTER → 2019-01-10 | Outpatient (CLI) | payer OTHER ==
[2019-01-10 09:59] LABS: Basophils % (A) 0 %; Eosinophils # (A) 0.1 k/uL (0-0.7); Eosinophils % (A) 1 %; HCT 34.1 % (34.0-46.0); HGB 11.2 gm/dL (11.4-16.0); Lymphocytes # (A) 1.6 k/uL (1.0-4.8); Lymphocytes % (A) 16 %; MCH 26.8 pg (25.0-35.0); MCHC 32.8 g/dL (31.0-37.0); MCV 81.9 fL (80.0-100.0); Mean Platelet Volume 6.8; Monocytes # (A) 0.5 k/uL (0-1.0); Monocytes % (A) 6 %; Neutrophils # (A) 7.5 k/uL (1.3-7.7); Neutrophils % (A) 76 %; Platelet Count 297 k/uL (150-450); Poikilocytosis Slight; RBC 4.16 m/uL (3.80-5.40); RDW 15.3 % (11.5-15.5); WBC 9.9 k/uL (3.8-10.6)
[2019-01-10 16:35] LABS: African American GFR (CKD) 144.8 (60.0-200.0); Albumin 3.6 g/dL (3.80-4.90); Albumin/Globulin Ratio 1.89 (1.60-3.17); Anion Gap 8.7 mmol/L (4.00-12.00); BUN/Creat Ratio 11.67 Ratio (12.00-20.00); Calcium 8.6 mg/dL (8.7-10.3); Carbon Dioxide 23.3 mmol/L (21.6-31.8); Globulin 1.9 g/dL (1.6-3.3); LDL Cholesterol,Calculated 41.8 mg/dL (0.0-131.0); Potassium 4.1 mmol/L (3.5-5.5); Total Bilirubin 0.4 mg/dL (0.2-1.2); Total Protein 5.5 g/dL (6.2-8.2); VLDL Calculation 60.2 mg/dL (5.00-40.00)
== END | disposition home or self-care (01) ==
LOC: LABWHC1 09:03
PROVIDERS: ATTEND Physician Assistant
DX: Z00.00 Encounter for general adult medical examination without abnormal findings (principal)
CPT/HCPCS: 36415; 80053; 80061; 82306; 85025

== ENCOUNTER → 2019-02-12 | Outpatient (CLI) | payer OTHER ==
[2019-02-12 10:36] LABS: HCT 32.1 % (34.0-46.0); HGB 10.6 gm/dL (11.4-16.0); Hypochromasia Slight; MCH 25.9 pg (25.0-35.0); MCV 78.5 fL (80.0-100.0); Mean Platelet Volume 7.8; Platelet Count 265 k/uL (150-450); Poikilocytosis Slight; RBC 4.08 m/uL (3.80-5.40); RDW 15.6 % (11.5-15.5)
[2019-02-12 16:53] LABS: Creatinine,Urine Random 91.9 mg/dL
[2019-02-12 17:07] LABS: Total Protein,Urine Random 20.1 mg/dL (0.0-13.5)
[2019-02-12 17:11] LABS: ALT 13 U/L (8-44); AST 15 U/L (13-35); Albumin/Globulin Ratio 1.83 (1.60-3.17); Alkaline Phosphatase 113 U/L (41-126); Bilirubin, Conjugated <0.20 mg/dL (0.20-0.40); Blood Urea Nitrogen <5.0 mg/dL (9.0-27.0); Creatine Kinase <20 U/L (26-186); Globulin 1.8 g/dL (1.6-3.3); LDH 140 U/L (120-246); Total Bilirubin 0.5 mg/dL (0.2-1.2); Total Protein 5.1 g/dL (6.2-8.2)
[2019-02-14 04:57] LABS: Toxoplasma Antibody (IgG) <3.0 IU/mL (<7.2); Toxoplasma Antibody (IgM) <3.0 AU/mL (<8.0)
[2019-02-14 11:25] LABS: Parvovirus B-19 IgG Antibodies 4.41 INDEX (<=0.90); Parvovirus B-19 IgM Antibodies 0.39 INDEX (<=0.90)
== END | disposition home or self-care (01) ==
LOC: LABWHC1 10:09
PROVIDERS: ATTEND Obstetrics & Gynecology Maternal & Fetal Medicine
DX: O40.3XX1 Polyhydramnios, third trimester, fetus 1 (principal); K83.1 Obstruction of bile duct
CPT/HCPCS: 36415; 80076; 82239; 82550; 82570; 83615; 84156; 84520; 85027; 86644; 86645; 86747; 86777; 86778

== ENCOUNTER 2019-02-14 14:46 | Outpatient (CLI) | payer OTHER ==
[2019-02-14 16:16] VITALS: BP 127/70; PULSE 85; RESP 16; TEMP 96.3
--- NOTE | 2019-03-23 00:01 | P.MSEPDOC ---
Presenting Problems - Arrival Data Date of Arrival on Unit: 02/14/19 Time of Arrival on Unit: 14:46 Mode of Transport: Ambulatory - Complaint OB-Reason for Admission/Chief Complaint: Other Comment: pt arrived c/o swelling i her feet so bad that she cant put her shoes on also c/o some swelling in hands. +1-+2 pitting edema noted in feet but not legs. pt c/o a h/a all the time refles plus 1 B/P 127/70 Medical History - Information : 2 Para: 1 Term: 1 : 0 Abortions: Spontaneous or Elective: 0 Number of Living Children: 0 - Gestational Age Gestational Age by ZAHRAA (wks/days): 35 Weeks and 1 Days Review of Systems - Review of Systems Constitutional: No problems Breast: No problems ENT: No problems Cardiovascular: No problems Respiratory: No problems Gastrointestinal: No problems Genitourinary: No problems Musculoskeletal: No problems Neurological: No problems Skin: No problems Vital Signs - Temperature Temperature: 96.3 F Temperature Source: Temporal Artery Scan - Pulse Right Brachial Pulse Rate: 85 Pulse Assessment Method: Automatic Cuff - Respirations Respiratory Rate: 16 Oxygen Delivery Method: Room Air - Blood Pressure Right Arm Blood Pressure: 127/70 Blood Pressure Mean: 89 Blood Pressure Source: Automatic Cuff Medical Screen Scoring (Pre) - Cervical Exam Dilation: Exam Deferred Effacement: Exam Deferred Membranes: Intact - Uterine Contractions Frequency: > 5 minutes apart = 1 Duration: N/A Intensity: N/A - Maternal Vital Signs Maternal Temperature: N/A Maternal Blood Pressure: N/A Signs of Preeclampsia: Headache = 1 Maternal Respirations: N/A - Maternal Trauma Maternal Trauma: N/A - Assessment - Baby A Baseline FHR: 130 Heart Rate - NICHD Category: Category I (Normal) = 0 NST: Reactive Position: N/A Station: N/A - Total Score - Baby A Total Score - Baby A: 2 - Total Score - Baby B Total Score - Baby B: 2 - Total Score - Baby C Total Score - Baby C: 2 - Level of Risk - Baby A Level of Risk - Baby A: Low (0-5) - Level of Risk - Baby B Level of Risk - Baby B: Low (0-5) - Level of Risk - Baby C Level of Risk - Baby C: Low (0-5) Physician Notification (Post) - Physician Notified Physician Notified Date: 02/14/19 Physician Notified Time: 16:20 Spoke With: dr marshall New Order Received: Yes - Notification Comment Comment: serial b/p 127/70 121/63 113/65 118/66. september dischsarge to home and off feet and elevate feet while home and have pt keep scheduled appointment thursday02/16/[address] rock Disposition - Disposition OB Disposition: Discharge to home Discharge Date: 02/14/19 Discharge Time: 16:30 I agree with the RN Medical Screening Exam: Yes Risk & Benefit of care provided described in d/c instruction: Yes Diagnosis: GESTATIONAL EDEMA, THIRD TRIMESTER
== END 2019-02-14 16:39 | disposition home or self-care (01) ==
LOC: FBPOP 14:46
PROVIDERS: ATTEND Obstetrics & Gynecology
DX: O12.03 Gestational edema, third trimester (principal); Z3A.35 35 weeks gestation of pregnancy
CPT/HCPCS: 59025; 99213

== ENCOUNTER 2019-02-16 11:40 | Outpatient (CLI) | payer OTHER ==
[2019-02-16 12:16] LABS: Appearance,Urine Cloudy (Clear); Bacteria,Urine Many /hpf; Bilirubin,Urine Negative (Negative); Blood,Urine Trace (Negative); Color,Urine Yellow; Glucose,Urine (UA) Negative (Negative); Ketones,Urine 3+ (Negative); Leukocyte Esterase,Urine Small (Negative); Mucus,Urine Many /hpf; Nitrite,Urine Negative (Negative); PH, Urine 6.5 (5.0-8.0); Protein,Urine Trace (Negative); RBC,Urine 11 /hpf (0-5); Specific Gravity,Urine 1.012 (1.001-1.035); Squamous Epithelial Cell,Urine 9 /hpf (0-4); Urobilinogen,Urine <2.0 mg/dL (<2.0); WBC,Urine 16 /hpf (0-5)
[2019-02-16 13:48] LABS: ALT 16 U/L (9-52); AST 18 U/L (14-36); African American GFR (CKD) >90 (>60 ml/min/1.73 sqM); Blood Urea Nitrogen 4 mg/dL (7-17); LDH 354 U/L (313-618); Uric Acid 6.4 mg/dL (3.7-7.4)
[2019-02-16 13:57] LABS: Basophils % (A) 1 %; Eosinophils # (A) 0.1 k/uL (0-0.7); Eosinophils % (A) 1 %; HCT 32.4 % (34.0-46.0); HGB 10.5 gm/dL (11.4-16.0); Hypochromasia Slight; Lymphocytes # (A) 1.4 k/uL (1.0-4.8); Lymphocytes % (A) 18 %; MCH 25.2 pg (25.0-35.0); MCHC 32.5 g/dL (31.0-37.0); MCV 77.4 fL (80.0-100.0); Mean Platelet Volume 7.9; Microcytosis Slight; Monocytes # (A) 0.4 k/uL (0-1.0); Monocytes % (A) 6 %; Neutrophils # (A) 5.5 k/uL (1.3-7.7); Neutrophils % (A) 73 %; Platelet Count 301 k/uL (150-450); Poikilocytosis Slight; RBC 4.18 m/uL (3.80-5.40); RDW 15.7 % (11.5-15.5); WBC 7.5 k/uL (3.8-10.6)
[2019-02-16 15:47] VITALS: BP 120/76; PULSE 90; RESP 16; TEMP 97.5
--- NOTE | 2019-02-16 15:50 | US ---
EXAMINATION TYPE: US OB BPP wo non-stress DATE OF EXAM: 02/16/2019 COMPARISON: NONE CLINICAL HISTORY: Nonreactive NST. Nonreactive NST EXAM PERFORMED: Transabdominal (TA) BPP PARAMETERS: HEART RATE: 149 bpm RHYTHM: Normal NILSA: 20.6cm DIAPHRAGM IMAGED: yes BPP SCORIN. Breathin (1 episode of breathing of 30 second duration in 30 minutes of scanning time) 2. Movement: 2 (at least 3 discrete body movements in 30 minutes) 3. Tone: 2 (1 episode of active flexion/extension of limb) 4. NILSA: 2 (NILSA index > 5cm) TOTAL SCORE: 8 / 8
--- NOTE | 2019-02-18 09:20 | P.MSEPDOC ---
Presenting Problems - Arrival Data Date of Arrival on Unit: 02/16/19 Time of Arrival on Unit: 11:40 Mode of Transport: Ambulatory - Complaint OB-Reason for Admission/Chief Complaint: PIH Comment: Sent from [facility] by Dr. Wyatt for PI work up; Dr. Hedrick covering for Dr. Wyatt at time of report. Medical History - Information : 2 Para: 1 Term: 1 : 0 Abortions: Spontaneous or Elective: 0 Number of Living Children: 1 - Gestational Age Gestational Age by ZAHRAA (wks/days): 35 Weeks and 3 Days Review of Systems - Review of Systems Constitutional: No problems Breast: No problems ENT: No problems Cardiovascular: No problems Respiratory: No problems Gastrointestinal: No problems Genitourinary: No problems Musculoskeletal: No problems Neurological: No problems Skin: No problems Vital Signs - Temperature Temperature: 97.5 F Temperature Source: Temporal Artery Scan - Pulse Right Sitting Brachial Pulse Rate: 90 Pulse Assessment Method: Automatic Cuff - Respirations Respiratory Rate: 16 Oxygen Delivery Method: Room Air O2 Sat by Pulse Oximetry: 97 - Blood Pressure Right Arm Sitting Blood Pressure: 120/76 Blood Pressure Mean: 90 Blood Pressure Source: Automatic Cuff Medical Screen Scoring (Pre) - Cervical Exam Dilation: Exam Deferred Effacement: Exam Deferred Membranes: Intact - Uterine Contractions Frequency: < 36 weeks = 6 Duration: > 40 seconds = 2 Intensity: N/A - Maternal Vital Signs Maternal Temperature: N/A Maternal Blood Pressure: N/A Signs of Preeclampsia: N/A Maternal Respirations: N/A - Maternal Trauma Maternal Trauma: N/A - Assessment - Baby A Baseline FHR: 140 NST: Non-reactive = 3 Position: N/A Station: N/A - Total Score - Baby A Total Score - Baby A: 11 - Total Score - Baby B Total Score - Baby B: 8 - Total Score - Baby C Total Score - Baby C: 8 - Level of Risk - Baby A Level of Risk - Baby A: High (10+) - Level of Risk - Baby B Level of Risk - Baby B: Medium (6-9) - Level of Risk - Baby C Level of Risk - Baby C: Medium (6-9) Physician Notification (Pre) - Physician Notified Physician Notified Date: 02/16/19 Physician Notified Time: 14:20 Physician/Practitioner Notifed:: Ryley Spoke With: Ryley New Order Received: Yes - Notification Comment Comment: Reviewed pts labs, serial BP, P/C ratio; non reactive NST x 2 r/t activity; unable to keep fetus on monitor, BPP ordered. Pts contraction pattern reviewed, pt denies pain, SVE in office today by Dr. Wyatt, cervix closed. Medical Screen Scoring (Post) - Assessment - Baby A Heart Rate: 140 Physician Notification (Post) - Physician Notified Physician Notified Date: 02/16/19 Physician Notified Time: 15:35 Physician/Practitioner Notified:: Ryley Spoke With: Ryley New Order Received: Yes - Notification Comment Comment: BPP 12/30. Pt to follow up Thursday for NST and BP check at [facility]. Pt has appt with [facility] on 02/22, Dr. Wyatt 02/23. Triage d/c to be reviewed. Disposition - Disposition OB Disposition: Triage, Discharge to home I agree with the RN Medical Screening Exam: Yes Risk & Benefit of care provided described in d/c instruction: Yes Diagnosis: RELATED CONDITIONS, UNSPECIFIED, THIRD TRIMESTER (r/o preeclampsia)
== END 2019-02-16 15:32 | disposition home or self-care (01) ==
LOC: FBPOP 11:40
PROVIDERS: ATTEND Obstetrics & Gynecology
DX: O26.93 Pregnancy related conditions, unspecified, third trimester (principal); Z3A.35 35 weeks gestation of pregnancy
CPT/HCPCS: 59025; 76819; 81001; 82565; 82570; 83615; 84156; 84450; 84460; 84520; 84550; 85025; 99215

== ENCOUNTER 2019-02-27 16:06 | Inpatient (IN) | payer OTHER ==
[~2019-02-27 16:06] MED LIST: ROPIVACAINE 5MG/ML 20ML VIAL ONE; SODIUM CHLORIDE 0.9% 100 ML BAG ONE; fentaNYL (PF) 50 MCG/ML 5 ML AMP ONE
[2019-02-27] MEDS ORDERED: DINOPROSTONE 10 MG INSERT.ER VAGINAL ONE (16:20)
[2019-02-27 16:29] VITALS: BMI 40.7
[2019-02-27] MEDS ORDERED: AMPICILLIN 2,000 MG in SODIUM CHLORIDE 0.9% 100 ML IVPB STA (17:03)
[2019-02-27 17:33] LABS: Basophils % (A) 0 %; Eosinophils % (A) 0 %; HCT 32.6 % (34.0-46.0); HGB 10.7 gm/dL (11.4-16.0); Hypochromasia Slight; Lymphocytes # (A) 1.8 k/uL (1.0-4.8); Lymphocytes % (A) 17 %; MCH 25.4 pg (25.0-35.0); MCHC 32.7 g/dL (31.0-37.0); MCV 77.7 fL (80.0-100.0); Mean Platelet Volume 6.6; Monocytes # (A) 0.6 k/uL (0-1.0); Monocytes % (A) 5 %; Neutrophils # (A) 7.8 k/uL (1.3-7.7); Neutrophils % (A) 76 %; Platelet Count 301 k/uL (150-450); Poikilocytosis Moderate; RBC 4.19 m/uL (3.80-5.40); RDW 15.3 % (11.5-15.5); WBC 10.3 k/uL (3.8-10.6)
[2019-02-27 17:43] LABS: ALT 15 U/L (9-52); AST 19 U/L (14-36); African American GFR (CKD) >90 (>60 ml/min/1.73 sqM); Blood Urea Nitrogen 7 mg/dL (7-17); LDH 399 U/L (313-618); Uric Acid 6.4 mg/dL (3.7-7.4)
[2019-02-27 17:54] LABS: INR 0.9 (<1.2); Prothrombin Time 9.6 sec (9.0-12.0)
[2019-02-27] MEDS ORDERED: BUTORPHANOL 1 MG/ML 1 ML VIAL IV PRN (17:56)
[2019-02-27] MEDS: LACTATED RINGERS 1,000 ML IV SCH (18:06)
[2019-02-27 20:54] LABS: Appearance,Urine Clear (Clear); Bacteria,Urine Moderate /hpf; Bilirubin,Urine Negative (Negative); Blood,Urine Trace (Negative); Color,Urine Yellow; Glucose,Urine (UA) Negative (Negative); Ketones,Urine 3+ (Negative); Leukocyte Esterase,Urine Negative (Negative); Mucus,Urine Few /hpf; Nitrite,Urine Negative (Negative); PH, Urine 6.5 (5.0-8.0); Protein,Urine 1+ (Negative); RBC,Urine 41 /hpf (0-5); Squamous Epithelial Cell,Urine 6 /hpf (0-4); Urobilinogen,Urine <2.0 mg/dL (<2.0); WBC,Urine 11 /hpf (0-5)
[2019-02-27] MEDS: AMPICILLIN 1,000 MG in SODIUM CHLORIDE 0.9% 50 ML IVPB SCH (21:37)
[2019-02-28] MEDS: AMPICILLIN 1,000 MG in SODIUM CHLORIDE 0.9% 50 ML IVPB SCH ×5 (00:49→16:49)
[2019-02-28] MEDS: LACTATED RINGERS 1,000 ML IV SCH ×5 (03:37→17:27)
[2019-02-28] MEDS ORDERED: LIDOCAINE 0.5% (PF) 5 MG/ML (50 ML SDV) SQ PRN (03:44)
[2019-02-28] MEDS ORDERED: CARBOPROST TROMETHAMINE 250 MCG/ML 1 ML AMP IM PRN (03:44)
[2019-02-28] MEDS ORDERED: METHYLERGONOVINE 0.2 MG/ML 1 ML AMP IM PRN (03:44)
[2019-02-28] MEDS ORDERED: OXYTOCIN 10 UNIT/ML 1 ML VIAL IM PRN (03:44)
[2019-02-28] MEDS ORDERED: TERBUTALINE 1 MG/ML VIAL SQ PRN (03:44)
[2019-02-28] MEDS ORDERED: OXYTOCIN 30 UNITS/500 ML NS 30 UNIT in SALINE 1 500ML.BAG IV SCH (03:45)
[2019-02-28] MEDS ORDERED: SODIUM CHLORIDE 0.9% 100 ML BAG ONE (03:52)
[2019-02-28] MEDS ORDERED: ROPIVACAINE 5MG/ML 20ML VIAL ONE (03:52)
[2019-02-28] MEDS ORDERED: fentaNYL (PF) 50 MCG/ML 5 ML AMP ONE (03:52)
[2019-02-28] MEDS ORDERED: CITRIC ACID-SODIUM CITRATE 15 ML CUP PO ONE (17:55)
--- NOTE | 2019-02-28 18:01 | P.HPOB ---
History of Present Illness H&P Date: 02/27/19 Chief Complaint: gestational hypertension 28 year old presents at 37 weeks for induction of labor due to gestational hypertension. She had more than one blood pressure in the office and in triage that was more than either over 140 or over 90. heart tones 130 with moderate variability and reactive. Her cervix was 1-2 cm dilated, 50% effaced, -2 station. She will have us 2-stage induction of labor. Review of Systems All systems: negative Constitutional: Denies chills, Denies fever Eyes: denies blurred vision, denies pain Ears, nose, mouth and throat: Denies headache, Denies sore throat Cardiovascular: Denies chest pain, Denies shortness of breath Respiratory: Denies cough Gastrointestinal: Denies abdominal pain, Denies diarrhea, Denies nausea, Denies vomiting Genitourinary: Denies dysuria, Denies hematuria Musculoskeletal: Denies myalgias Integumentary: Denies pruritus, Denies rash Neurological: Denies numbness, Denies weakness Psychiatric: Denies anxiety, Denies depression Endocrine: Denies fatigue, Denies weight change Past Medical History Additional Past Medical History / Comment(s): kidney stones. Obstetric history: Her first was a vaginal delivery. This is her second and she's had care with me since the first trimester. She does have a finding of polyhydramnios with negative torch titers. She had symptoms of cholestasis but labs were normal. She has developed gestational hypertension over the last 2 weeks. History of Any Multi-Drug Resistant Organisms: None Reported Date of last positivie culture/infection: 2015 MDRO Source:: stool Past Surgical History: Cholecystectomy Past Anesthesia/Blood Transfusion Reactions: No Reported Reaction Past Psychological History: No Psychological Hx Reported, Depression Smoking Status: Former smoker Past Alcohol Use History: None Reported Past Drug Use History: None Reported - Past Family History Mother Family Medical History: Unable to Obtain Medications and Allergies Home Medications Medication Instructions Recorded Confirmed Type Cetirizine HCl [Zyrtec] 10 mg PO DAILY 07/26/17 02/27/19 History Zxk-Ktqh-Hzdos Acid 1 cap PO DAILY 07/21/18 02/27/19 History [-U Capsule (formulary)] Allergies Allergy/AdvReac Type Severity Reaction Status Date / Time Sulfa (Sulfonamide Allergy Unknown Unknown Verified 02/27/19 16:19 Antibiotics) Childhood Exam Osteopathic Statement: *. No significant issues noted on an osteopathic structural exam other than those noted in the History and Physical/Consult. Intake and Output 02/28/19 02/28/19 02/28/19 06:59 14:59 22:59 Output Total 1100 Balance -1100 Output: Urine 1100 Heart: Regular rate and rhythm Lungs: Clear to auscultation bilaterally Abdomen: Soft, nontender Extremities: Negative Homans sign Results Result Diagrams: 02/27/19 17:10 02/27/19 17:10 Abnormal Lab Results - Last 24 Hours (Table) 02/27/19 02/27/19 Range/Units 20:00 20:00 Urine Protein 1+ H (Negative) Urine Ketones 3+ H (Negative) Urine Blood Trace H (Negative) Urine RBC 41 H (0-5) /hpf Urine WBC 11 H (0-5) /hpf Ur Squamous Epith Cells 6 H (0-4) /hpf Urine Bacteria Moderate H (None) /hpf Urine Mucus Few H (None) /hpf U Random Total Protein 53 H (<12) mg/dL Assessment and Plan (1) Gestational hypertension Current Visit: Yes Status: Acute Code(s): O13.9 - GESTATIONAL HTN W/O SIGNIFICANT PROTEINURIA, UNSP TRIMESTER SNOMED Code(s): 301914596 Plan: 1. Induction of labor with first Cervidil and then amniotomy and Pitocin the morning. 2. Anticipate normal vaginal delivery
[2019-02-28] MEDS ORDERED: ONDANSETRON 4 MG/2 ML VIAL ONE (19:26)
[2019-02-28] MEDS ORDERED: NALBUPHINE 10 MG/ML (1 ML AMP) ONE (19:26)
[2019-02-28] MEDS ORDERED: MORPHINE SULFATE (PF) 0.3 MG/0.3 ML SYR ONE (19:26)
[2019-02-28] MEDS ORDERED: KETOROLAC 30 MG/ML 1 ML VIAL ONE (19:26)
[2019-02-28] MEDS ORDERED: OXYTOCIN 10 UNIT/ML 1 ML VIAL ONE (19:26)
[2019-02-28] MEDS ORDERED: METOCLOPRAMIDE 5 MG/ML 2 ML VIAL IVP PRN (20:13)
[2019-02-28] MEDS ORDERED: LANOLIN CREAM 5 GM TUBE TOPICAL PRN (20:13)
[2019-02-28] MEDS ORDERED: ACETAMINOPHEN TAB 325 MG TAB PO PRN (20:13)
[2019-02-28] MEDS ORDERED: ZOLPIDEM 5 MG TAB PO PRN (20:13)
[2019-02-28] MEDS ORDERED: diphenhydrAMINE 50 MG/ML 1 ML VIAL IVP PRN ×2 (20:13)
[2019-02-28] MEDS ORDERED: diphenhydrAMINE 25 MG CAP PO PRN (20:13)
[2019-02-28] MEDS ORDERED: diphenhydrAMINE 50 MG CAP PO PRN (20:13)
[2019-02-28] MEDS ORDERED: SIMETHICONE 80 MG CHEWABLE PO PRN (20:13)
[2019-02-28] MEDS ORDERED: NALOXONE 0.4 MG/ML 1 ML VIAL IV PRN (20:13)
[2019-02-28] MEDS ORDERED: ONDANSETRON 4 MG/2 ML VIAL IVP PRN (20:13)
[2019-02-28] MEDS ORDERED: LACTATED RINGERS 1,000 ML IV SCH (20:15)
[2019-02-28] MEDS ORDERED: OXYTOCIN 20 UNITS/1000 ML NS 1,000 ML IV SCH (20:15)
[2019-03-01] MEDS: KETOROLAC 30 MG/ML 1 ML VIAL IVP PRN ×2 (04:19→09:54)
--- NOTE | 2019-03-01 07:20 | P.OP ---
Date of Procedure: 02/28/19 Preoperative Diagnosis: 1. at 37 weeks 2. gestational hypertension 3. polyhydramnios 4. arrest of first stage of labor 5. Family planning Postoperative Diagnosis: 1. at 37 weeks 2. gestational hypertension 3. polyhydramnios 4. arrest of first stage of labor 5. asynclitic lie 6. Family planning Procedure(s) Performed: Primary low transverse with tubal ligation Anesthesia: spinal Surgeon: Terri Wyatt Estimated Blood Loss (ml): 500 IV fluids (ml): 600 Urine output (ml): 100 Pathology: other (Placenta, fallopian tubes segment) Condition: stable Disposition: floor Operative Findings: Primary low transverse with tubal ligation Description of Procedure: Patient was taken to the operating room where spinal anesthesia was found be adequate. She was prepped and draped in normal sterile fashion in dorsal supine position with a leftward tilt. Pfannenstiel skin incision was made the scalpel and carried through to the underlying layer of fascia with the scalpel. Fascia was incised in midline and carried bilaterally with the Nj scissors. The superior aspect of the fascial incision was grasped with Premier clamps elevated and the underlying rectus muscles dissected off with the Nj's. Attention was then turned to inferior aspect of same incision which in a similar fashion was grasped tented up and the underlying rectus muscles dissected off with the Nj's. The rectus muscles were the midline and the peritoneum was identified tented up and entered sharply with the scalpel. The incision was extended superiorly and inferiorly with good visualization of the bladder. The bladder blade was inserted and the vesicouterine peritoneum was incised the Metzenbaums then carried bilaterally and bladder flap created digitally. A low transverse incision was then made on the uterus with the scalpel. This was carried bilaterally and digital manner. 's head delivered atraumatically, nose and mouth bulb suctioned, cord clamped and cut, infant handed off to waiting nurses. Placenta delivered manually, intact with three-vessel cord. The uterus is exteriorized and cleared of all clots and debris. The uterine incision was closed with 0 Vicryl in a running locked fashion. Second layer of the same sutures used in imbricating fashion to obtain excellent hemostasis. Bladder flap was then reapproximated using 2-0 Vicryl in a running fashion. Both ovaries and tubes appeared normal. The uterus was placed back into the abdomen. The peritoneum was reapproximated using 2-0 Vicryl in a running fashion. The muscles were reapproximated using 2-0 Vicryl in interrupted fashion. The fascia was reapproximated using 0 Vicryl in a running fashion. The subcutaneous tissues closed with 3-0 Vicryl running fashion. The skin was closed tapan. Patient tolerated the procedure well, sponge and instrument counts were correct times 2 and she was taken to the recovery room in stable condition.
[2019-03-01 07:35] LABS: Basophils % (A) 0 %; Eosinophils % (A) 0 %; HCT 26.3 % (34.0-46.0); Hypochromasia Moderate; Lymphocytes % (A) 11 %; MCH 25.2 pg (25.0-35.0); MCHC 32.1 g/dL (31.0-37.0); MCV 78.7 fL (80.0-100.0); Mean Platelet Volume 7.3; Monocytes % (A) 6 %; Neutrophils % (A) 81 %; Platelet Count 260 k/uL (150-450); Poikilocytosis Slight; RBC 3.34 m/uL (3.80-5.40); RDW 15.7 % (11.5-15.5); WBC 15.8 k/uL (3.8-10.6)
[2019-03-01 07:36] LABS: Lymphocytes # (A) 1.8 k/uL (1.0-4.8); Monocytes # (A) 0.9 k/uL (0-1.0); Neutrophils # (A) 12.9 k/uL (1.3-7.7)
[2019-03-01 07:38] LABS: HGB 8.4 gm/dL (11.4-16.0)
[2019-03-01] MEDS: SENNOSIDES-DOCUSATE SODIUM 1 EACH TAB PO SCH (11:07)
[2019-03-01 15:41] VITALS: RESP 16
[2019-03-01] MEDS: HYDROcodone/APAP 7.5-325MG 1 EACH TAB PO PRN ×2 (16:38→21:52)
[2019-03-01] MEDS: IBUPROFEN 600 MG TAB PO PRN (18:12)
[2019-03-02] MEDS: IBUPROFEN 600 MG TAB PO PRN ×3 (02:15→14:25)
[2019-03-02] MEDS: HYDROcodone/APAP 7.5-325MG 1 EACH TAB PO PRN ×4 (05:45→23:42)
--- NOTE | 2019-03-02 07:59 | P.PNOBGPC ---
Subjective - Subjective Principal diagnosis: S/P 1*LTCS POD #1 Interval history: Pt seen and examined. Denies nausea, vomiting or chest pain, shortness of breath or calf pain. Her pain is controlled with pain medication. Tolerating regular diet, passing flatus. Patient reports: Reports appetite normal, Reports voiding normally, Reports pain well controlled, Reports ambulating normally [place]: doing well Objective - Vital Signs Latest vital signs: Vital Signs Temp Pulse Resp BP Pulse Ox 03/02/19 00:00 98 F 83 16 117/88 03/01/19 20:00 97.9 F 87 16 118/66 99 03/01/19 15:41 98.7 F 97 16 115/68 03/01/19 12:20 97.8 F 94 17 130/53 98 Intake and Output 03/01/19 03/02/19 03/02/19 22:59 06:59 14:59 Other: # Voids 1 - Exam Lungs: bilateral: normal Chest: Normal S1, Normal S2 Extremities: Present: normal Abdomen: Present: normal appearance, soft. Absent: distention, tenderness Incision: Present: normal, dry, intact Uterus: Present: normal, firm Assessment and Plan (1) Gestational hypertension Current Visit: Yes Status: Acute Code(s): O13.9 - GESTATIONAL HTN W/O SIGNIFICANT PROTEINURIA, UNSP TRIMESTER SNOMED Code(s): 676267423 (2) Status post primary low transverse section Current Visit: Yes Status: Acute Code(s): Z98.891 - HISTORY OF UTERINE SCAR FROM PREVIOUS SURGERY SNOMED Code(s): 377338648 Plan: 1. Increase ambulation 2. Continue to monitor blood pressure 3. Pain control
[2019-03-02] MEDS: SENNOSIDES-DOCUSATE SODIUM 1 EACH TAB PO SCH ×2 (08:00→19:46)
[2019-03-03] MEDS: IBUPROFEN 600 MG TAB PO PRN ×3 (03:00→15:43)
[2019-03-03] MEDS: HYDROcodone/APAP 7.5-325MG 1 EACH TAB PO PRN ×2 (05:37→12:31)
[2019-03-03] MEDS: SENNOSIDES-DOCUSATE SODIUM 1 EACH TAB PO SCH (09:29)
--- NOTE | 2019-03-03 13:26 | P.DS ---
Providers Date of admission: 02/27/19 16:06 Expected date of discharge: 03/03/19 Attending physician: Terri Wyatt Primary care physician: Stated None - Discharge Diagnosis(es) (1) Gestational hypertension Current Visit: Yes Status: Acute (2) Status post primary low transverse section Current Visit: Yes Status: Acute Hospital Course: Pt presented for induction of labor with gestational hypertension. SHe underwent a primary low transverse with TL. HEr po course was uncomplicated. SHe is tolerating a reg diet and passing flatus. Denies N/V, F/C, CP, SOB, calf pain. She will be discharged home POD #2 in stable condition to follow up with me in 1 week. Plan - Discharge Summary New Discharge Prescriptions: New Ibuprofen [Motrin] 600 mg PO Q6HR PRN #30 tab PRN Reason: Mild Pain Or Fever >= 100.5 HYDROcodone/APAP 7.5-325MG [B[place]ster 7.5-325] 1 each PO Q6H PRN #12 tab PRN Reason: Severe Pain No Action Cetirizine HCl [Zyrtec] 10 mg PO DAILY Bxz-Boep-Zugsa Acid [-U Capsule (formulary)] 1 cap PO DAILY Discharge Medication List Cetirizine HCl [Zyrtec] 10 mg PO DAILY 07/26/17 [History] Avp-Ficq-Clttw Acid [-U Capsule (formulary)] 1 cap PO DAILY 07/21/18 [History] HYDROcodone/APAP 7.5-325MG [Brewster 7.5-325] 1 each PO Q6H PRN #12 tab 03/03/19 [Rx] Ibuprofen [Motrin] 600 mg PO Q6HR PRN #30 tab 03/03/19 [Rx] Follow up Appointment(s)/Referral(s): Terri Wyatt DO [Doctor of Osteopathic Medicine] - 1 Week Discharge Disposition: HOME SELF-CARE
[2019-03-03 15:30] VITALS: BP 129/85; PULSE 71; TEMP 97.7
== END 2019-03-03 17:00 | disposition home or self-care (01) | DRG 785 ==
LOC: 4FBP 16:06
PROVIDERS: ADMIT Obstetrics & Gynecology; ATTEND Obstetrics & Gynecology
PROC: 10907ZC Drainage of Amniotic Fluid, Therapeutic from Products of Conception, Via Natural or Artificial Opening (ICD-10-PCS; 2019-02-27)
PROC: 3E033VJ Introduction of Other Hormone into Peripheral Vein, Percutaneous Approach (ICD-10-PCS; 2019-02-27)
PROC: 10D00Z1 Extraction of Products of Conception, Low, Open Approach (ICD-10-PCS; principal; 2019-03-01)
PROC: 0UB70ZZ Excision of Bilateral Fallopian Tubes, Open Approach (ICD-10-PCS; principal; 2019-03-01)
DX: O13.4 Gestational [pregnancy-induced] hypertension without significant proteinuria, complicating childbirth (principal); O40.3XX0 Polyhydramnios, third trimester, not applicable or unspecified; Z37.0 Single live birth; Z3A.37 37 weeks gestation of pregnancy; Z87.442 Personal history of urinary calculi; Z87.891 Personal history of nicotine dependence; Z88.2 Allergy status to sulfonamides; O62.1 Secondary uterine inertia; Z30.2 Encounter for sterilization
CPT/HCPCS: 81001; 82565; 82570; 83615; 84156; 84450; 84460; 84520; 84550; 85025; 85610; 85730; 86850; 86900; 86901; 88302; 88307

== ENCOUNTER 2021-02-13 08:40 | Day surgery (SDC) | payer OTHER ==
[2021-02-08 09:04] VITALS: BMI 38.0
--- NOTE | 2021-02-13 07:08 | P.GSHP ---
History of Present Illness H&P Date: 02/13/21 CHIEF COMPLAINT: Abdominal pain with diarrhea HISTORY OF PRESENT ILLNESS: The patient is a 11-ypvi-ihr[age] male who presents with abdominal pain including diarrhea. Lower endoscopy was offered for further evaluation and management. PAST MEDICAL HISTORY: Please see list. PAST SURGICAL HISTORY: Please see list. MEDICATIONS: Please see list. ALLERGIES: Please see list. SOCIAL HISTORY: No illicit drug use FAMILY HISTORY: No reports of Crohn disease or ulcerative colitis. REVIEW OF ORGAN SYSTEMS: CONSTITUTIONAL: No reports of fevers or chills. No reports of weight loss despite prior attempts. GI: Has diarrhea including change in bowel habits. PHYSICAL EXAM: VITAL SIGNS: Stable GENERAL: Well-developed pleasant male in no acute distress. HEENT: No scleral icterus. Extraocular movements grossly intact. Moist buccal mucosa. NECK: Supple without lymphadenopathy. CHEST: Unlabored respirations. Equal bilateral excursions. CARDIOVASCULAR: Regular rate and rhythm. Distal 2+ pulses. ABDOMEN: Soft, nontender, nondistended. MUSCULOSKELETAL: No clubbing, cyanosis, or edema. ASSESSMENT: 1. Change in bowel habits. 2. Abdominal pain 3. Diarrhea PLAN: 1. Recommend proceeding with a lower endoscopy Past Medical History Additional Past Medical History / Comment(s): kidney stones, FREQ DIARRHEA FOR PAST 5 MONTHS History of Any Multi-Drug Resistant Organisms: None Reported Date of last positivie culture/infection: 2016 MDRO Source:: stool Past Surgical History: Cholecystectomy, Tubal Ligation Past Anesthesia/Blood Transfusion Reactions: No Reported Reaction Smoking Status: Current every day smoker - Past Family History Mother Family Medical History: No Reported History Medications and Allergies Home Medications Medication Instructions Recorded Confirmed Type Cetirizine HCl [Zyrtec] 10 mg PO DAILY 07/26/17 02/08/21 History Allergies Allergy/AdvReac Type Severity Reaction Status Date / Time Sulfa (Sulfonamide Allergy Unknown Unknown Verified 02/08/21 08:58 Antibiotics) Childhood
[~2021-02-13 08:40] MED LIST changes: +LACTATED RINGERS 1,000 ML IV SCH; -ROPIVACAINE 5MG/ML 20ML VIAL ONE; -SODIUM CHLORIDE 0.9% 100 ML BAG ONE; -fentaNYL (PF) 50 MCG/ML 5 ML AMP ONE
[2021-02-13 09:20] VITALS: RESP 18; TEMP 97.1
[2021-02-13] MEDS ORDERED: LIDOCAINE 1% INJ 10MG/ML (20 ML MDV) ONE (10:14)
[2021-02-13] MEDS ORDERED: PROPOFOL 10 MG/ML 20 ML VIAL IV ONE (10:14)
--- NOTE | 2021-02-13 10:47 | P.PCN ---
Date of Procedure: 02/13/21 Description of Procedure: PREOPERATIVE DIAGNOSIS: Change in bowel habits with chronic diarrhea Morbid obesity due to excess calories, BMI 37.7 POSTOPERATIVE DIAGNOSIS: Change in bowel habits with chronic diarrhea Morbid obesity due to excess calories, BMI 37.7 Microscopic colitis OPERATION: Colonoscopy to the cecum, ileocecal valve and appendiceal orifice. Colonoscopy with random cold forceps biopsies for microscopic colitis SURGEON: Rea Chu MD. ANESTHESIA: MAC. INDICATIONS: The patient is a 30-year-old female who presents . which change in bowel habits and diarrhea for over 5 months. Benefits and risks were described and informed consent was obtained. DESCRIPTION OF PROCEDURE: The patient had undergone Sutab prep. The patient had been brought into the operating room and laid in the left lateral decubitus position. After adequate intravenous sedation, the rectum was examined with 2% lidocaine jelly. No external hemorrhoids were encountered. The rectal tone was within normal limits. No lesions were palpated in the rectal vault. An Olympus colonoscope was advanced until the cecum, ileocecal valve and appendiceal orifice were clearly viewed. The prep was excellent. No scattered diverticulosis was encountered. No colonic polyps were found. Random biopsies were obtained for microscopic colitis. Retroflexion of the scope demonstrated grade 1 internal hemorrhoids without active bleeding or inflammation. The colon was desufflated. The patient had tolerated the procedure well. Withdrawal time was over 6 minutes. FINDINGS: Aronchick preparation quality scale 1 (1-5) Internal hemorrhoids, grade 1 No external prolapsed hemorrhoids. No arteriovenous malformations. No adenomatous polyps. Random biopsies obtained with cold forceps for microscopic colitis RECOMMENDATIONS: Lower endoscopy as needed Plan - Discharge Summary Discharge Rx Participant: No New Discharge Prescriptions: Continue Cetirizine HCl [Zyrtec] 10 mg PO DAILY Dextroamphetamine/Amphetamine [Adderall] 10 mg PO PRN PRN Reason: See Comments Discharge Medication List Cetirizine HCl [Zyrtec] 10 mg PO DAILY 07/26/17 [History] Dextroamphetamine/Amphetamine [Adderall] 10 mg PO PRN 02/13/21 [History] Follow up Appointment(s)/Referral(s): Rea Chu MD [STAFF PHYSICIAN] - 02/26/21 Patient Instructions/Handouts: *Surgery [facility] - (Anesthesia) Endoscopy Discharge Instructions, Colonoscopy (GEN) Discharge Disposition: HOME SELF-CARE
[2021-02-13 11:03] VITALS: BP 104/62; PULSE 74
== END 2021-02-13 11:49 | disposition home or self-care (01) ==
LOC: ORWHC2ENDO 08:40
PROVIDERS: ATTEND Surgery Plastic and Reconstructive Surgery
DX: K52.9 Noninfective gastroenteritis and colitis, unspecified (principal); F17.200 Nicotine dependence, unspecified, uncomplicated; E66.01 Morbid (severe) obesity due to excess calories; Z68.37 Body mass index [BMI] 37.0-37.9, adult; Z80.0 Family history of malignant neoplasm of digestive organs; Z87.442 Personal history of urinary calculi; Z88.2 Allergy status to sulfonamides; Z90.49 Acquired absence of other specified parts of digestive tract
CPT/HCPCS: 45380; 81025; 88305; 84703; J2001; J2704

== ENCOUNTER 2021-05-19 06:50 | Emergency (ER) | payer OTHER ==
[2021-05-19 06:56] VITALS: TEMP 97.4
[2021-05-19] MEDS ORDERED: KETOROLAC 15 MG/ML 1 ML VIAL IVP STA (07:15)
[2021-05-19] MEDS ORDERED: SODIUM CHLORIDE 0.9% 1,000 ML IV STA (07:15)
[2021-05-19] MEDS ORDERED: HYDROmorphone 0.5 MG/0.5 ML SYRINGE IVP STA ×2 (07:15→10:30)
[2021-05-19] MEDS ORDERED: ONDANSETRON 4 MG/2 ML VIAL IVP STA (07:15)
[2021-05-19] MEDS ORDERED: TAMSULOSIN 0.4 MG CAP.ER.24H PO STA (07:16)
[2021-05-19] MEDS ORDERED: DICYCLOMINE 10 MG/ML 2 ML AMP IM STA (07:16)
--- NOTE | 2021-05-19 07:25 | ED ---
Abdominal Pain HPI - General Chief Complaint: Abdominal Pain Stated Complaint: COVID+, kidney stone Time Seen by Provider: 05/19/21 06:59 Source: patient Mode of arrival: ambulatory Limitations: no limitations - History of Present Illness Initial Comments: 31 year-old female patient presents to the emergency department for abdominal pain. Patient states that she started with left flank pain last night. States that the pain has traveled from the left flank and is now in the suprapubic region. She has history of kidney stones and states this feels similar. She feels that the stone is stuck trying to come out of her bladder. She reports some nausea. Denies vomiting, fever, or chills. Denies hematuria or dysuria. She was diagnosed and started having symptoms of COVID on Thursday. States those symptoms are starting to improve. She has been having diarrhea. She has had tubal ligation. Denies history of ovarian cyst. Denies any vaginal bleeding or discharge. Patient denies any recent rash, cough, shortness of breath, chest pain, constipation, back pain, numbness, tingling, dizziness, weakness, hematuria, dysuria, urinary urgency, urinary frequency, headache, visual changes, or any other complaints. - Related Data Home Medications Medication Instructions Recorded Confirmed Cetirizine HCl [Zyrtec] 10 mg PO DAILY 07/26/17 02/13/21 Dextroamphetamine/Amphetamine 10 mg PO PRN 02/13/21 [Adderall] Previous Rx's Medication Instructions Recorded HYDROcodone/APAP 5-325MG [[place] 5] 1 each PO Q6HR PRN #12 tab 05/19/21 Ibuprofen [Motrin] 600 mg PO Q8HR PRN #30 tab 05/19/21 Ondansetron [Zofran ODT] 4 mg PO Q8HR PRN #10 tab 05/19/21 Tamsulosin HCl [Flomax] 0.4 mg PO DAILY #7 cap 05/19/21 Allergies Allergy/AdvReac Type Severity Reaction Status Date / Time Sulfa (Sulfonamide Allergy Unknown Unknown Verified 02/08/21 08:58 Antibiotics) Childhood Review of Systems ROS Statement: Those systems with pertinent positive or pertinent negative responses have been documented in the HPI. ROS Other: All systems not noted in ROS Statement are negative. Past Medical History Additional Past Medical History / Comment(s): kidney stones, FREQ DIARRHEA FOR PAST 5 MONTHS History of Any Multi-Drug Resistant Organisms: None Reported Date of last positivie culture/infection: 2016 MDRO Source:: stool Past Surgical History: Cholecystectomy, Tubal Ligation Additional Past Surgical History / Comment(s): bilateral lithotripsy 2018 Past Anesthesia/Blood Transfusion Reactions: No Reported Reaction Past Psychological History: Depression Smoking Status: Current every day smoker Past Alcohol Use History: None Reported Past Drug Use History: Marijuana - Past Family History Mother Family Medical History: No Reported History General Exam Limitations: no limitations General appearance: alert, in no apparent distress, other (This is a well- developed, well-nourished adult female in no acute distress.) ENT exam: Present: normal exam, normal oropharynx, mucous membranes moist Respiratory exam: Present: normal lung sounds bilaterally. Absent: respiratory distress, wheezes, rales, rhonchi, stridor Cardiovascular Exam: Present: regular rate, normal rhythm, normal heart sounds. Absent: systolic murmur, diastolic murmur, rubs, gallop, clicks GI/Abdominal exam: Present: soft, tenderness (Suprapubic), normal bowel sounds. Absent: distended, guarding, rebound, rigid Neurological exam: Present: alert, oriented X3, CN II-XII intact Psychiatric exam: Present: normal affect, normal mood Skin exam: Present: warm, dry, intact, normal color. Absent: rash Course Vital Signs 05/19/21 05/19/21 06:51 09:54 Temperature 97.4 F L Pulse Rate 72 53 L Respiratory 18 16 Rate Blood Pressure 139/81 112/64 O2 Sat by Pulse 96 99 Oximetry Medical Decision Making - Medical Decision Making 31-year-old female patient past medical history significant for kidney stone presents for evaluation of left flank pain progressed to suprapubic abdominal pain. Physical examination did reveal left CVA tenderness. She has blood in her urine. Other labs are unremarkable. She is given multiple doses of pain medication. Symptoms are consistent with kidney stone, CT shows 2 mm on the left distal ureter. She'll be discharged to follow-up with urology for further evaluation as soon as possible. She is given prescriptions for symptom management. Return parameters were discussed in detail. She verbalizes understanding and agrees with this plan. My attending is Dr. Abad. - Lab Data Result diagrams: 05/19/21 07:36 05/19/21 07:36 Lab Results 05/19/21 05/19/21 05/19/21 Range/Units 07:36 07:36 07:36 WBC 4.9 (3.8-10.6) k/uL RBC 5.07 (3.80-5.40) m/uL Hgb 14.6 (11.4-16.0) gm/dL Hct 44.4 (34.0-46.0) % MCV 87.5 (80.0-100.0) fL MCH 28.9 (25.0-35.0) pg MCHC 33.0 (31.0-37.0) g/dL RDW 14.2 (11.5-15.5) % Plt Count 256 (150-450) k/uL MPV 7.4 Neutrophils % 57 % Lymphocytes % 33 % Monocytes % 6 % Eosinophils % 1 % Basophils % 1 % Neutrophils # 2.8 (1.3-7.7) k/uL Lymphocytes # 1.6 (1.0-4.8) k/uL Monocytes # 0.3 (0-1.0) k/uL Eosinophils # 0.1 (0-0.7) k/uL Basophils # 0.0 (0-0.2) k/uL Sodium 136 L (137-145) mmol/L Potassium 3.7 (3.5-5.1) mmol/L Chloride 104 (98-107) mmol/L Carbon Dioxide 21 L (22-30) mmol/L Anion Gap 11 mmol/L BUN 10 (7-17) mg/dL Creatinine 0.72 (0.52-1.04) mg/dL Est GFR (CKD-EPI)AfAm >90 (>60 ml/min/1.73 sqM) Est GFR (CKD-EPI)NonAf >90 (>60 ml/min/1.73 sqM) Glucose 96 (74-99) mg/dL Calcium 9.1 (8.4-10.2) mg/dL Total Bilirubin 0.5 (0.2-1.3) mg/dL AST 33 (14-36) U/L ALT 38 H (4-34) U/L Alkaline Phosphatase 70 (38-126) U/L Total Protein 7.0 (6.3-8.2) g/dL Albumin 4.1 (3.5-5.0) g/dL Lipase 69 (23-300) U/L Urine Color Light Red Urine Appearance Cloudy H (Clear) Urine pH 6.0 (5.0-8.0) Ur Specific Hall 1.016 (1.001-1.035) Urine Protein 1+ H (Negative) Urine Glucose (UA) Negative (Negative) Urine Ketones 1+ H (Negative) Urine Blood Large H (Negative) Urine Nitrite Negative (Negative) Urine Bilirubin Negative (Negative) Urine Urobilinogen <2.0 (<2.0) mg/dL Ur Leukocyte Esterase Moderate H (Negative) Urine RBC >182 H (0-5) /hpf Urine WBC 48 H (0-5) /hpf Ur Squamous Epith Cells 11 H (0-4) /hpf Urine Bacteria Rare H (None) /hpf Urine Mucus Moderate H (None) /hpf Urine HCG, Qual (Not Detectd) 05/19/21 Range/Units 07:36 WBC (3.8-10.6) k/uL RBC (3.80-5.40) m/uL Hgb (11.4-16.0) gm/dL Hct (34.0-46.0) % MCV (80.0-100.0) fL MCH (25.0-35.0) pg MCHC (31.0-37.0) g/dL RDW (11.5-15.5) % Plt Count (150-450) k/uL MPV Neutrophils % % Lymphocytes % % Monocytes % % Eosinophils % % Basophils % % Neutrophils # (1.3-7.7) k/uL Lymphocytes # (1.0-4.8) k/uL Monocytes # (0-1.0) k/uL Eosinophils # (0-0.7) k/uL Basophils # (0-0.2) k/uL Sodium (137-145) mmol/L Potassium (3.5-5.1) mmol/L Chloride (98-107) mmol/L Carbon Dioxide (22-30) mmol/L Anion Gap mmol/L BUN (7-17) mg/dL Creatinine (0.52-1.04) mg/dL Est GFR (CKD-EPI)AfAm (>60 ml/min/1.73 sqM) Est GFR (CKD-EPI)NonAf (>60 ml/min/1.73 sqM) Glucose (74-99) mg/dL Calcium (8.4-10.2) mg/dL Total Bilirubin (0.2-1.3) mg/dL AST (14-36) U/L ALT (4-34) U/L Alkaline Phosphatase (38-126) U/L Total Protein (6.3-8.2) g/dL Albumin (3.5-5.0) g/dL Lipase (23-300) U/L Urine Color Urine Appearance (Clear) Urine pH (5.0-8.0) Ur Specific Hall (1.001-1.035) Urine Protein (Negative) Urine Glucose (UA) (Negative) Urine Ketones (Negative) Urine Blood (Negative) Urine Nitrite (Negative) Urine Bilirubin (Negative) Urine Urobilinogen (<2.0) mg/dL Ur Leukocyte Esterase (Negative) Urine RBC (0-5) /hpf Urine WBC (0-5) /hpf Ur Squamous Epith Cells (0-4) /hpf Urine Bacteria (None) /hpf Urine Mucus (None) /hpf Urine HCG, Qual Not Detected (Not Detectd) - Radiology Data Radiology results: report reviewed, image reviewed CT abdomen and pelvis is obtained. Report was reviewed in its entirety. Impression by Dr. Gutiérrez shows questionable 2 mm calculus in the distal left ureter with mild periureteral stranding. Punctate calcifications in the left kidney measuring 2 and 3 mm. No renal collecting system dilatation. Degenerative changes at L5 to S1. Small gastroesophageal hiatal hernia. Disposition Clinical Impression: Kidney stone Disposition: HOME SELF-CARE Condition: Good Instructions (If sedation given, give patient instructions): Kidney Stones (ED) Additional Instructions: Continue fluids. Follow-up with the urologist for further evaluation as soon as possible. Take medications as directed for pain. Return to the emergency department for any new, worsening, or concerning symptoms. Prescriptions: Tamsulosin HCl [Flomax] 0.4 mg PO DAILY #7 cap Ibuprofen [Motrin] 600 mg PO Q8HR PRN #30 tab PRN Reason: Pain HYDROcodone/APAP 5-325MG [[place] 5] 1 each PO Q6HR PRN #12 tab PRN Reason: Pain Ondansetron [Zofran ODT] 4 mg PO Q8HR PRN #10 tab PRN Reason: Nausea Is patient prescribed a controlled substance at d/c from ED?: No Referrals: Paul Granger DO [Primary Care Provider] - 1-2 days Michael Andrews MD [STAFF PHYSICIAN] - 1-2 days Time of Disposition: 11:05
[2021-05-19 07:49] LABS: Basophils % (A) 1 %; Eosinophils # (A) 0.1 k/uL (0-0.7); Eosinophils % (A) 1 %; HCT 44.4 % (34.0-46.0); HGB 14.6 gm/dL (11.4-16.0); Lymphocytes # (A) 1.6 k/uL (1.0-4.8); Lymphocytes % (A) 33 %; MCH 28.9 pg (25.0-35.0); MCV 87.5 fL (80.0-100.0); Mean Platelet Volume 7.4; Monocytes # (A) 0.3 k/uL (0-1.0); Monocytes % (A) 6 %; Neutrophils # (A) 2.8 k/uL (1.3-7.7); Neutrophils % (A) 57 %; Platelet Count 256 k/uL (150-450); RBC 5.07 m/uL (3.80-5.40); RDW 14.2 % (11.5-15.5); WBC 4.9 k/uL (3.8-10.6)
[2021-05-19 07:58] LABS: ALT 38 U/L (4-34); AST 33 U/L (14-36); African American GFR (CKD) >90 (>60 ml/min/1.73 sqM); Albumin 4.1 g/dL (3.5-5.0); Alkaline Phosphatase 70 U/L (38-126); Anion Gap 11 mmol/L; Blood Urea Nitrogen 10 mg/dL (7-17); Calcium 9.1 mg/dL (8.4-10.2); Carbon Dioxide 21 mmol/L (22-30); Chloride 104 mmol/L (98-107); Glucose 96 mg/dL (74-99); Lipase 69 U/L (23-300); Non-African American GFR(CKD) >90 (>60 ml/min/1.73 sqM); Potassium 3.7 mmol/L (3.5-5.1); Sodium 136 mmol/L (137-145); Total Bilirubin 0.5 mg/dL (0.2-1.3)
[2021-05-19] MEDS ORDERED: HYDROmorphone 1 MG/ML 1 ML SYRINGE IVP STA (08:29)
[2021-05-19 09:18] LABS: Appearance,Urine Cloudy (Clear); Bacteria,Urine Rare /hpf; Bilirubin,Urine Negative (Negative); Blood,Urine Large (Negative); Color,Urine Light Red; Glucose,Urine (UA) Negative (Negative); Ketones,Urine 1+ (Negative); Leukocyte Esterase,Urine Moderate (Negative); Mucus,Urine Moderate /hpf; Nitrite,Urine Negative (Negative); Protein,Urine 1+ (Negative); RBC,Urine >182 /hpf (0-5); Specific Gravity,Urine 1.016 (1.001-1.035); Squamous Epithelial Cell,Urine 11 /hpf (0-4); Urobilinogen,Urine <2.0 mg/dL (<2.0); WBC,Urine 48 /hpf (0-5)
[2021-05-19 09:55] VITALS: BP 112/64; PULSE 53; RESP 16
--- NOTE | 2021-05-19 10:32 | CT ---
EXAMINATION TYPE: CT abdomen pelvis wo con DATE OF EXAM: 05/19/2021 COMPARISON: January 22, 2018 HISTORY: Abd ,pain TECHNIQUE: CT scan of the abdomen and pelvis performed without contrast CT DLP: 903.9 mGycm Automated exposure control for dose reduction was used. FINDINGS: Lower thorax: Unremarkable. Liver, adrenal glands, spleen, pancreas are unremarkable. Gallbladder is absent. No abnormal biliary ductal dilatation. There are 2 punctate calcifications in the left kidney measuring 2 and 3 mm. No renal calculi seen on the right. No renal collecting system dilatation. 2 mm calculus in the region of the distal left ure ter. Partially distended urinary bladder and inadequate for evaluation. Small gastroesophageal hiatal hernia, no bowel malrotation or obstruction. Normal appearing terminal ileum and appendix. No intestinal obstruction. No pneumoperitoneum or portal venous gas. No pneumatosis. No ascites. No enlarged retroperitoneal or pelvic lymph nodes seen. Uterus and adnexa are unremarkable. The aorta is nonaneurysmal. The inferior vena cava is partially collapsed. No acute osseous abnormality. Facet arthropathy seen at L5-S1 with mild narrowing of the intervertebr al space and questionable disc herniation. IMPRESSION: 1. QUESTIONABLE 2 MM CALCULUS IN THE DISTAL LEFT URETER WITH MILD PERIURETERIC STRANDING. 2. PUNCTATE CALCIFICATIONS IN THE LEFT KIDNEY MEASURING 2 AND 3 MM. 3. NO RENAL COLLECTING SYSTEM DILATATION. 4. DEGENERATIVE CHANGES AT L5-S1. 5. SMALL GASTROESOPHAGEAL HIATAL HERNIA
== END 2021-05-19 11:09 | disposition home or self-care (01) ==
LOC: EC 06:50
DX: N20.0 Calculus of kidney (principal); U07.1 COVID-19; F17.200 Nicotine dependence, unspecified, uncomplicated; Z88.2 Allergy status to sulfonamides
CPT/HCPCS: 36415; 80053; 83690; 85025; 81001; 81025; 87086; 74176; 99284; 96374; 96375; 96376; 96361; 96372; J0500; J2405; J1170 ×2; J1885

== ENCOUNTER 2021-05-19 17:07 | Emergency (ER) | payer OTHER ==
[2021-05-19 18:21] VITALS: TEMP 97.9
--- NOTE | 2021-05-19 19:34 | ED ---
General Adult HPI - General Chief complaint: Nausea/Vomiting/Diarrhea Stated complaint: covid+, kidney stone & vomiting-revisit Time Seen by Provider: 05/19/21 19:33 Source: patient, RN notes reviewed, old records reviewed Mode of arrival: ambulatory Limitations: no limitations - Related Data Home Medications Medication Instructions Recorded Confirmed Cetirizine HCl [Zyrtec] 10 mg PO DAILY 07/26/17 02/13/21 Dextroamphetamine/Amphetamine 10 mg PO PRN 02/13/21 [Adderall] Previous Rx's Medication Instructions Recorded HYDROcodone/APAP 5-325MG [[place] 5] 1 each PO Q6HR PRN #12 tab 05/19/21 Ibuprofen [Motrin] 600 mg PO Q8HR PRN #30 tab 05/19/21 Ondansetron [Zofran ODT] 4 mg PO Q8HR PRN #10 tab 05/19/21 Tamsulosin HCl [Flomax] 0.4 mg PO DAILY #7 cap 05/19/21 Allergies Allergy/AdvReac Type Severity Reaction Status Date / Time Sulfa (Sulfonamide Allergy Unknown Unknown Verified 05/19/21 18:21 Antibiotics) Childhood Review of Systems ROS Statement: Those systems with pertinent positive or pertinent negative responses have been documented in the HPI. ROS Other: All systems not noted in ROS Statement are negative. Past Medical History Additional Past Medical History / Comment(s): kidney stones, FREQ DIARRHEA FOR PAST 5 MONTHS History of Any Multi-Drug Resistant Organisms: None Reported Date of last positivie culture/infection: 2016 MDRO Source:: stool Past Surgical History: Cholecystectomy, Tubal Ligation Additional Past Surgical History / Comment(s): bilateral lithotripsy 2018 Past Anesthesia/Blood Transfusion Reactions: No Reported Reaction Past Psychological History: Depression Smoking Status: Current every day smoker Past Alcohol Use History: None Reported Past Drug Use History: Marijuana - Past Family History Mother Family Medical History: No Reported History General Exam Limitations: no limitations Course Vital Signs 05/19/21 18:18 Temperature 97.9 F Pulse Rate 83 Respiratory 18 Rate Blood Pressure 119/73 O2 Sat by Pulse 97 Oximetry Disposition Referrals: Paul Granger DO [Primary Care Provider] - 1-2 days
[2021-05-19] MEDS ORDERED: SODIUM CHLORIDE 0.9% 500 ML 500 ML IV STA (19:57)
[2021-05-19] MEDS ORDERED: SODIUM CHLORIDE 0.9% 1,000 ML IV STA (19:57)
[2021-05-19] MEDS ORDERED: HYDROmorphone 0.5 MG/0.5 ML SYRINGE IVP STA (20:11)
[2021-05-19] MEDS ORDERED: METOCLOPRAMIDE 5 MG/ML 2 ML VIAL IVP STA (20:14)
--- NOTE | 2021-05-19 20:14 | ED ---
General Adult HPI - General Chief complaint: Nausea/Vomiting/Diarrhea Stated complaint: covid+, kidney stone & vomiting-revisit Time Seen by Provider: 05/19/21 19:33 Source: patient Mode of arrival: ambulatory Limitations: no limitations - History of Present Illness Initial comments: Dictation was produced using [employer] dictation software. please excuse any grammatical, word or spelling errors. Chief Complaint: 31-year-old female presents emergency department for by mouth intolerance she was just in the emergency room diagnosed with kidney stone History of Present Illness: Patient is a 31-year-old female she was here in the emergency department earlier today. She had blood work and computed tomography scan she's been approximately one week positive with coated. She had labs that suggested kidney stone. She had a computed tomography scan that showed left distal 2 mm nephrolithiasis. She is treated given appropriate medications and discharged. She states that she tried to go home however she had by mouth intolerance. States that she can't stop vomiting. She also reports feeling dehydrated. The ROS documented in this emergency department record has been reviewed and confirmed by me. Those systems with pertinent positive or negative responses have been documented in the HPI. All other systems are other negative and/or noncontributory. PHYSICAL EXAM: General Impression: Alert and oriented x3, not in acute distress HEENT: Normocephalic atraumatic, extra-ocular movements intact, pupils equal and reactive to light bilaterally, mucous membranes moist. Cardiovascular: Heart regular rate and rhythm Chest: Able to complete full sentences, no retractions, no tachypnea Abdomen: abdomen soft, non-tender, non-distended, no organomegaly Musculoskeletal: Pulses present and equal in all extremities, no peripheral edema Motor: no focal deficits noted Neurological: CN II-XII grossly intact, no focal motor or sensory deficits noted Skin: Intact with no visualized rashes Psych: Normal affect and mood ED course: 31-year-old female presents to the emergency department for persistent nausea and vomiting. She was just diagnosed with today with 2 mm left ureteral distal kidney stone. Vital signs upon arrival are within acceptable limits. Reevaluated at bedside 10:00 PM. Patient's well-appearing. She is resting comfortably. Tolerating oral intake. She really had received a prescription for occasions to treat kidney stones and given referral from her earlier visit. She'll be discharged. - Related Data Home Medications Medication Instructions Recorded Confirmed Cetirizine HCl [Zyrtec] 10 mg PO DAILY 07/26/17 02/13/21 Dextroamphetamine/Amphetamine 10 mg PO PRN 02/13/21 [Adderall] Previous Rx's Medication Instructions Recorded HYDROcodone/APAP 5-325MG [[place] 5] 1 each PO Q6HR PRN #12 tab 05/19/21 Ibuprofen [Motrin] 600 mg PO Q8HR PRN #30 tab 05/19/21 Ondansetron [Zofran ODT] 4 mg PO Q8HR PRN #10 tab 05/19/21 Tamsulosin HCl [Flomax] 0.4 mg PO DAILY #7 cap 05/19/21 Allergies Allergy/AdvReac Type Severity Reaction Status Date / Time Sulfa (Sulfonamide Allergy Unknown Unknown Verified 05/19/21 18:21 Antibiotics) Childhood Review of Systems ROS Statement: Those systems with pertinent positive or pertinent negative responses have been documented in the HPI. ROS Other: All systems not noted in ROS Statement are negative. Past Medical History Additional Past Medical History / Comment(s): kidney stones, FREQ DIARRHEA FOR PAST 5 MONTHS History of Any Multi-Drug Resistant Organisms: None Reported Date of last positivie culture/infection: 2015 MDRO Source:: stool Past Surgical History: Cholecystectomy, Tubal Ligation Additional Past Surgical History / Comment(s): bilateral lithotripsy 2018 Past Anesthesia/Blood Transfusion Reactions: No Reported Reaction Past Psychological History: Depression Smoking Status: Current every day smoker Past Alcohol Use History: None Reported Past Drug Use History: Marijuana - Past Family History Mother Family Medical History: No Reported History General Exam Limitations: no limitations Course Vital Signs 05/19/21 18:18 Temperature 97.9 F Pulse Rate 83 Respiratory 18 Rate Blood Pressure 119/73 O2 Sat by Pulse 97 Oximetry Disposition Clinical Impression: Kidney stone Disposition: HOME SELF-CARE Condition: Fair Instructions (If sedation given, give patient instructions): Acute Nausea and Vomiting (ED) Is patient prescribed a controlled substance at d/c from ED?: No Referrals: Paul Granger DO [Primary Care Provider] - 1-2 days
[2021-05-19 22:28] VITALS: BP 124/78; PULSE 79; RESP 16
== END 2021-05-19 22:28 | disposition home or self-care (01) ==
LOC: EC 17:07
DX: N20.0 Calculus of kidney (principal); U07.1 COVID-19; F17.200 Nicotine dependence, unspecified, uncomplicated; Z88.2 Allergy status to sulfonamides
CPT/HCPCS: 99283; 96374; 96375; J2765; J1170

== ENCOUNTER 2022-04-09 23:57 | Emergency (ER) | payer OTHER ==
[2022-04-10 00:20] VITALS: TEMP 97.9
[2022-04-10 00:42] VITALS: BP 124/76; PULSE 84; RESP 16
[2022-04-10] MEDS ORDERED: KETOROLAC 15 MG/ML 1 ML VIAL IM STA (00:42)
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
--- NOTE | 2022-04-10 01:50 | XR ---
EXAMINATION TYPE: XR knee complete RT DATE OF EXAM: 04/10/2022 COMPARISON: NONE HISTORY: Pain TECHNIQUE: 3 view FINDINGS: There is no evidence of fracture nor dislocation. Joint spaces are normal. No sign of knee joint effusion. IMPRESSION: Negative right knee exam. No fracture seen.
--- NOTE | 2022-04-10 01:51 | XR ---
EXAMINATION TYPE: XR humerus LT DATE OF EXAM: 04/10/2022 COMPARISON: NONE HISTORY: Pain TECHNIQUE: 2 views FINDINGS: The shoulder joint and elbow joint appear intact. No evidence of a fracture. No pathologic calcification. IMPRESSION: Negative left humerus exam.
--- NOTE | 2022-04-10 01:51 | XR ---
EXAMINATION TYPE: XR shoulder complete LT DATE OF EXAM: 04/10/2022 COMPARISON: NONE HISTORY: Pain TECHNIQUE: 3 views FINDINGS: The glenohumeral joint is intact. No evidence of fracture nor dislocation. AC joint is inta ct. IMPRESSION: The left shoulder exam.
== END 2022-04-10 02:27 | disposition home or self-care (01) ==
LOC: EC 23:57
DX: M25.512 Pain in left shoulder (principal); F32.A Depression, unspecified; F17.200 Nicotine dependence, unspecified, uncomplicated; F12.90 Cannabis use, unspecified, uncomplicated; Z88.2 Allergy status to sulfonamides; V47.5XXA Car driver injured in collision with fixed or stationary object in traffic accident, initial encounter
CPT/HCPCS: 73030; 73060; 73562; 99284; 96372; J1885

== ENCOUNTER 2022-10-18 11:39 | Emergency (ER) | payer OTHER ==
[2022-10-18] MEDS ORDERED: ONDANSETRON 4 MG/2 ML VIAL IVP STA (12:19)
[2022-10-18] MEDS ORDERED: SODIUM CHLORIDE 0.9% 1,000 ML IV STA (12:19)
[2022-10-18] MEDS ORDERED: KETOROLAC 15 MG/ML 1 ML VIAL IVP STA ×2 (12:19→14:14)
[2022-10-18 12:50] LABS: Basophils # (A) 0.1 k/uL (0-0.2); Basophils % (A) 1 %; Eosinophils # (A) 0.2 k/uL (0-0.7); Eosinophils % (A) 2 %; HCT 40.8 % (34.0-46.0); HGB 13.7 gm/dL (11.4-16.0); Lymphocytes # (A) 0.9 k/uL (1.0-4.8); Lymphocytes % (A) 12 %; MCH 29.1 pg (25.0-35.0); MCHC 33.7 g/dL (31.0-37.0); MCV 86.3 fL (80.0-100.0); Monocytes # (A) 0.5 k/uL (0-1.0); Monocytes % (A) 7 %; Neutrophils # (A) 6.1 k/uL (1.3-7.7); Neutrophils % (A) 78 %; Platelet Count 289 k/uL (150-450); RBC 4.72 m/uL (3.80-5.40); RDW 14.1 % (11.5-15.5); WBC 7.8 k/uL (3.8-10.6)
[2022-10-18 12:59] LABS: ALT 45 U/L (4-34); AST 34 U/L (14-36); African American GFR (CKD) >90 (>60 ml/min/1.73 sqM); Albumin 4.2 g/dL (3.5-5.0); Alkaline Phosphatase 80 U/L (38-126); Amylase 37 U/L (30-110); Anion Gap 10 mmol/L; Blood Urea Nitrogen 9 mg/dL (7-17); Calcium 8.8 mg/dL (8.4-10.2); Carbon Dioxide 23 mmol/L (22-30); Chloride 105 mmol/L (98-107); Glucose 92 mg/dL (74-99); Lipase 55 U/L (23-300); Non-African American GFR(CKD) >90 (>60 ml/min/1.73 sqM); Potassium 3.9 mmol/L (3.5-5.1); Sodium 138 mmol/L (137-145)
--- NOTE | 2022-10-18 12:59 | XR ---
EXAMINATION TYPE: XR KUB DATE OF EXAM: 10/18/2022 12:50 PM CLINICAL HISTORY: History of kidney stones with flank pain into back. TECHNIQUE: Two Upright KUB images of the abdomen are obtained. COMPARISON: CT abdomen and pelvis May 19, 2021. FINDINGS: Scattered gas is seen in non-distended stomach and small bowel loops. Gas and fecal materia l is seen in non-distended colon. There is no visceromegaly, pneumoperitoneum, or abnormal calcificat ion appreciated. Small left renal calculus on CT less well seen on plain films. The lung bases are cl ear and the osseous structures are intact. IMPRESSION: Overall nonobstructive bowel gas pattern.
[2022-10-18 13:39] LABS: Appearance,Urine Clear (Clear); Bacteria,Urine Rare /hpf; Bilirubin,Urine Negative (Negative); Blood,Urine Large (Negative); Color,Urine Yellow; Glucose,Urine (UA) Negative (Negative); Ketones,Urine Negative (Negative); Leukocyte Esterase,Urine Negative (Negative); Mucus,Urine Occasional /hpf; Nitrite,Urine Negative (Negative); Protein,Urine Trace (Negative); RBC,Urine 58 /hpf (0-5); Specific Gravity,Urine 1.029 (1.001-1.035); Squamous Epithelial Cell,Urine 2 /hpf (0-4); Urobilinogen,Urine <2.0 mg/dL (<2.0); WBC,Urine 2 /hpf (0-5)
[2022-10-18 15:26] VITALS: PULSE 77
--- NOTE | 2022-10-18 16:06 | US ---
EXAMINATION TYPE: US transvaginal DATE OF EXAM: 10/18/2022 COMPARISON: NONE CLINICAL INDICATION: Female, 32 years old with history of pain, bleeding; bleeding TECHNIQUE: Transvaginal (TV EXAM MEASUREMENTS: Uterus: 8.1 x 4.5 x 5.4 cm Endometrial Stripe: 1.4 cm Right Ovary: 3.3 x 1.9 x 2.3 cm Left Ovary: 3.1 x 2.7 x 2.5 cm 1. Uterus: Anteverted Nabothian cysts seen 2. Endometrium: wnl 3. Right Ovary: wnl 4. Left Ovary: wnl Spectral, color and waveform doppler imaging shows good arterial and venous flow within the ovaries ; there is no evidence for ovarian torsion. 5. Bilateral Adnexa: wnl 6. Posterior cul-de-sac: wnl IMPRESSION: 1. No evidence for acute pelvic process. 2. Appropriate arterial and venous spectral waveforms bilaterally to the ovaries.
[2022-10-18] MEDS ORDERED: ACETAMINOPHEN TAB 500 MG TAB PO STA (16:44)
--- NOTE | 2022-10-18 17:52 | ED ---
General Adult HPI - General Chief complaint: Vaginal Bleeding Stated complaint: Vaginal bleeding/cramping Time Seen by Provider: 10/18/22 12:02 Source: patient, RN notes reviewed Mode of arrival: ambulatory Limitations: no limitations - History of Present Illness Initial comments: 32-year-old female presents to the emergency department chief complaint of muscle aches, headache, chills, mild cough and vaginal bleeding 1 day. Patient states that she took Tylenol earlier today with some relief of her symptoms. She states her last menstrual period Was about 3 weeks ago and she typically has monthly periods. She states that she had a tubal ligation. She reports one sexual partner and no concern for STDs. - Related Data Home Medications Medication Instructions Recorded Confirmed Cetirizine HCl [Zyrtec] 10 mg PO DAILY 07/26/17 02/13/21 Dextroamphetamine/Amphetamine 10 mg PO PRN 02/13/21 [Adderall] Previous Rx's Medication Instructions Recorded HYDROcodone/APAP 5-325MG [[place] 5] 1 each PO Q6HR PRN #12 tab 05/19/21 Ibuprofen [Motrin] 600 mg PO Q8HR PRN #30 tab 05/19/21 Ondansetron [Zofran ODT] 4 mg PO Q8HR PRN #10 tab 05/19/21 Tamsulosin HCl [Flomax] 0.4 mg PO DAILY #7 cap 05/19/21 Allergies Allergy/AdvReac Type Severity Reaction Status Date / Time Sulfa (Sulfonamide Allergy Unknown Unknown Verified 10/18/22 11:55 Antibiotics) Childhood Review of Systems ROS Statement: Those systems with pertinent positive or pertinent negative responses have been documented in the HPI. ROS Other: All systems not noted in ROS Statement are negative. Past Medical History Additional Past Medical History / Comment(s): kidney stones, FREQ DIARRHEA FOR PAST 5 MONTHS History of Any Multi-Drug Resistant Organisms: None Reported Date of last positivie culture/infection: 2016 MDRO Source:: stool Past Surgical History: Cholecystectomy, Tubal Ligation Additional Past Surgical History / Comment(s): bilateral lithotripsy 2018 Past Anesthesia/Blood Transfusion Reactions: No Reported Reaction Past Psychological History: Depression Smoking Status: Current every day smoker Past Alcohol Use History: None Reported Past Drug Use History: Marijuana - Past Family History Mother Family Medical History: No Reported History General Exam Limitations: no limitations General appearance: alert, in no apparent distress Head exam: Present: atraumatic, normocephalic, normal inspection Eye exam: Present: normal appearance, PERRL, EOMI. Absent: scleral icterus, conjunctival injection, periorbital swelling ENT exam: Present: normal exam, mucous membranes moist Neck exam: Present: normal inspection. Absent: tenderness, meningismus, lymphadenopathy Respiratory exam: Present: normal lung sounds bilaterally. Absent: respiratory distress, wheezes, rales, rhonchi, stridor Cardiovascular Exam: Present: regular rate, normal rhythm, normal heart sounds. Absent: systolic murmur, diastolic murmur, rubs, gallop, clicks GI/Abdominal exam: Present: soft, normal bowel sounds. Absent: distended, tenderness, guarding, rebound, rigid External exam: Present: normal external exam Speculum exam: Present: vaginal bleeding. Absent: foreign body, tissue, laceration By manual exam: Present: normal by manual exam Extremities exam: Present: normal inspection, full ROM, normal capillary refill. Absent: tenderness, pedal edema, joint swelling, calf tenderness Back exam: Present: normal inspection Neurological exam: Present: alert, oriented X3 Psychiatric exam: Present: normal affect, normal mood Skin exam: Present: warm, dry, intact, normal color. Absent: rash Course Vital Signs 10/18/22 10/18/22 10/18/22 11:51 13:54 15:24 Temperature 98.2 F 98.9 F 98.0 F Pulse Rate 95 83 77 Respiratory 20 16 15 Rate Blood Pressure 118/82 120/81 121/59 O2 Sat by Pulse 98 99 96 Oximetry 10/18/22 18:07 Temperature 98.3 F Pulse Rate 77 Respiratory 16 Rate Blood Pressure 117/71 O2 Sat by Pulse 96 Oximetry Medical Decision Making - Medical Decision Making Was pt. sent in by a medical professional or institution (, PA, DETHISTLER OPERATOR, urgent care, hospital, or [facility]...) When possible be specific @ -No Did you speak to anyone other than the patient for history (EMS, parent, family, police, friend...)? What history was obtained from this source @ -No Did you review nursing and triage notes (agree or disagree)? Why? @ -I reviewed and agree with nursing and triage notes Were old charts reviewed (outside hosp., previous admission, EMS record, old EKG, old radiological studies, urgent care reports/EKG's, [facility] records)? Report findings @ -No old charts were reviewed Differential Diagnosis (chest pain, altered mental status, abdominal pain women, abdominal pain men, vaginal bleeding, weakness, fever, dyspnea, syncope, headache, dizziness, GI bleed, back pain, seizure, CVA, palpatations, mental health, musculoskeletal)? @ -Differential Vaginal Bleeding: Spontaneous , threatened , molar , ectopic , bloody show, incompetent cervix, abruptioplacenta, placenta previa, uterine rupture, dysfunctional uterine bleeding, hemorrhage, uterine fibroids, this is not meant to be an all-inclusive list. EKG interpreted by me (3pts min.). @ -None X-rays interpreted by me (1pt min.). @ -KUB showed nonobstructive bowel gas pattern CT interpreted by me (1pt min.). @ -None done U/S interpreted by me (1pt. min.). @ -Transvaginal ultrasound was obtained which showed no evidence for acute process What testing was considered but not performed or refused? (CT, X-rays, U/S, labs)? Why? @ -None What meds were considered but not given or refused? Why? @ -None Did you discuss the management of the patient with other professionals (professionals i.e. , PA, DETHISTLER OPERATOR, lab, RT, psych nurse, social media executive, doctor of naprapathy, teacher, guest services officer, case work aide)? Give summary @ -No Was smoking cessation discussed for >3mins.? @ -No Was critical care preformed (if so, how long)? @ -No Were there social determinants of health that impacted care today? How? (Homelessness, low income, unemployed, alcoholism, drug addiction, transportation, low edu. Level, literacy, decrease access to med. care, fpc, rehab)? @ -No Was there de-escalation of care discussed even if they declined (Discuss DNR or withdrawal of care, Hospice)? DNR status @ -No What co-morbidities impacted this encounter? (DM, HTN, Smoking, COPD, CAD, Cancer, CVA, ARF, Chemo, Hep., AIDS, mental health diagnosis, sleep apnea, morbid obesity)? @ -None Was patient admitted / discharged? Hospital course, mention meds given and route, prescriptions, significant lab abnormalities, going to OR and other pertinent info. @ -Discharged. Patient is in the emergency department chief complaint of muscle aches, cough, vaginal bleeding, chills. UA was obtained which showed blood in the urine which is likely from patient's vaginal bleeding. CBC and CMP were within normal limits. Covid, influenza, RSV were negative. Transvaginal Ultrasound showed no evidence for acute process. Pelvic exam was performed which showed no evidence for laceration, there was vaginal bleeding no abnormal discharge or odor. Patient declined vaginal swabs for STDs. Patient advised on findings and return to work options. Case discussed with my attending, Dr. Abad. Patient discharged stable condition. Undiagnosed new problem with uncertain prognosis? @ -No Drug Therapy requiring intensive monitoring for toxicity (Heparin, Nitro, Insulin, Cardizem)? @ -No Were any procedures done? @ -No Diagnosis/symptom? @ -viral syndrome Acute, or Chronic, or Acute on Chronic? @ -acute Uncomplicated (without systemic symptoms) or Complicated (systemic symptoms)? @ -uncomplicated Side effects of treatment? @ -No Exacerbation, Progression, or Severe Exacerbation? @ -No Poses a threat to life or bodily function? How? (Chest pain, USA, IA, pneumonia, PE, COPD, DKA, ARF, appy, cholecystitis, CVA, Diverticulitis, Homicidal, Suicidal, threat to staff... and all critical care pts) @ -No - Lab Data Result diagrams: 10/18/22 12:41 10/18/22 12:41 Lab Results 10/18/22 10/18/22 10/18/22 Range/Units 12:41 12:41 12:41 WBC 7.8 (3.8-10.6) k/uL RBC 4.72 (3.80-5.40) m/uL Hgb 13.7 (11.4-16.0) gm/dL Hct 40.8 (34.0-46.0) % MCV 86.3 (80.0-100.0) fL MCH 29.1 (25.0-35.0) pg MCHC 33.7 (31.0-37.0) g/dL RDW 14.1 (11.5-15.5) % Plt Count 289 (150-450) k/uL MPV 7.0 Neutrophils % 78 % Lymphocytes % 12 % Monocytes % 7 % Eosinophils % 2 % Basophils % 1 % Neutrophils # 6.1 (1.3-7.7) k/uL Lymphocytes # 0.9 L (1.0-4.8) k/uL Monocytes # 0.5 (0-1.0) k/uL Eosinophils # 0.2 (0-0.7) k/uL Basophils # 0.1 (0-0.2) k/uL Sodium 138 (137-145) mmol/L Potassium 3.9 (3.5-5.1) mmol/L Chloride 105 (98-107) mmol/L Carbon Dioxide 23 (22-30) mmol/L Anion Gap 10 mmol/L BUN 9 (7-17) mg/dL Creatinine 0.73 (0.52-1.04) mg/dL Est GFR (CKD-EPI)AfAm >90 (>60 ml/min/1.73 sqM) Est GFR (CKD-EPI)NonAf >90 (>60 ml/min/1.73 sqM) Glucose 92 (74-99) mg/dL Plasma Lactic Acid Alvino 0.8 (0.7-2.0) mmol/L Calcium 8.8 (8.4-10.2) mg/dL Total Bilirubin 1.0 (0.2-1.3) mg/dL AST 34 (14-36) U/L ALT 45 H (4-34) U/L Alkaline Phosphatase 80 (38-126) U/L Total Protein 7.0 (6.3-8.2) g/dL Albumin 4.2 (3.5-5.0) g/dL Amylase 37 (30-110) U/L Lipase 55 (23-300) U/L Urine Color Urine Appearance (Clear) Urine pH (5.0-8.0) Ur Specific [place] (1.001-1.035) Urine Protein (Negative) Urine Glucose (UA) (Negative) Urine Ketones (Negative) Urine Blood (Negative) Urine Nitrite (Negative) Urine Bilirubin (Negative) Urine Urobilinogen (<2.0) mg/dL Ur Leukocyte Esterase (Negative) Urine RBC (0-5) /hpf Urine WBC (0-5) /hpf Ur Squamous Epith Cells (0-4) /hpf Urine Bacteria (None) /hpf Urine Mucus (None) /hpf Urine HCG, Qual (Not Detectd) Influenza Type A (PCR) (Not Detectd) Influenza Type B (PCR) (Not Detectd) RSV (PCR) (Not Detectd) SARS-CoV-2 (PCR) (Not Detectd) 10/18/22 10/18/22 10/18/22 Range/Units 13:05 13:05 13:07 WBC (3.8-10.6) k/uL RBC (3.80-5.40) m/uL Hgb (11.4-16.0) gm/dL Hct (34.0-46.0) % MCV (80.0-100.0) fL MCH (25.0-35.0) pg MCHC (31.0-37.0) g/dL RDW (11.5-15.5) % Plt Count (150-450) k/uL MPV Neutrophils % % Lymphocytes % % Monocytes % % Eosinophils % % Basophils % % Neutrophils # (1.3-7.7) k/uL Lymphocytes # (1.0-4.8) k/uL Monocytes # (0-1.0) k/uL Eosinophils # (0-0.7) k/uL Basophils # (0-0.2) k/uL Sodium (137-145) mmol/L Potassium (3.5-5.1) mmol/L Chloride (98-107) mmol/L Carbon Dioxide (22-30) mmol/L Anion Gap mmol/L BUN (7-17) mg/dL Creatinine (0.52-1.04) mg/dL Est GFR (CKD-EPI)AfAm (>60 ml/min/1.73 sqM) Est GFR (CKD-EPI)NonAf (>60 ml/min/1.73 sqM) Glucose (74-99) mg/dL Plasma Lactic Acid Alvino (0.7-2.0) mmol/L Calcium (8.4-10.2) mg/dL Total Bilirubin (0.2-1.3) mg/dL AST (14-36) U/L ALT (4-34) U/L Alkaline Phosphatase (38-126) U/L Total Protein (6.3-8.2) g/dL Albumin (3.5-5.0) g/dL Amylase (30-110) U/L Lipase (23-300) U/L Urine Color Yellow Urine Appearance Clear (Clear) Urine pH 6.0 (5.0-8.0) Ur Specific [place] 1.029 (1.001-1.035) Urine Protein Trace H (Negative) Urine Glucose (UA) Negative (Negative) Urine Ketones Negative (Negative) Urine Blood Large H (Negative) Urine Nitrite Negative (Negative) Urine Bilirubin Negative (Negative) Urine Urobilinogen <2.0 (<2.0) mg/dL Ur Leukocyte Esterase Negative (Negative) Urine RBC 58 H (0-5) /hpf Urine WBC 2 (0-5) /hpf Ur Squamous Epith Cells 2 (0-4) /hpf Urine Bacteria Rare H (None) /hpf Urine Mucus Occasional H (None) /hpf Urine HCG, Qual Not Detected (Not Detectd) Influenza Type A (PCR) Not Detected (Not Detectd) Influenza Type B (PCR) Not Detected (Not Detectd) RSV (PCR) Not Detected (Not Detectd) SARS-CoV-2 (PCR) Not Detected (Not Detectd) Disposition Clinical Impression: Viral syndrome Disposition: HOME SELF-CARE Condition: Stable Instructions (If sedation given, give patient instructions): Dysmenorrhea (ED) Additional Instructions: Alternate Tylenol and Motrin as needed for pain. Please return to the emergency department for any new or worsening symptoms. Is patient prescribed a controlled substance at d/c from ED?: No Referrals: Paul Granger DO [Primary Care Provider] - 1-2 days Time of Disposition: 17:52
[2022-10-18 18:08] VITALS: BP 117/71; RESP 16; TEMP 98.3
== END 2022-10-18 18:05 | disposition home or self-care (01) ==
LOC: EC 11:39
DX: B34.9 Viral infection, unspecified (principal); F32.A Depression, unspecified; F17.200 Nicotine dependence, unspecified, uncomplicated; F12.90 Cannabis use, unspecified, uncomplicated; Z88.2 Allergy status to sulfonamides; Z79.899 Other long term (current) drug therapy; Z20.822 Contact with and (suspected) exposure to COVID-19
CPT/HCPCS: 36415; 80053; 82150; 83605; 83690; 85025; 81001; 81025; 87636; 74018; 93975; 76830; 99284; 96374; 96375 ×2; 96361 ×2; J2405; J1885

== ENCOUNTER 2023-09-20 20:56 | Emergency (ER) | payer OTHER ==
[2023-09-20 21:20] VITALS: BP 118/84; PULSE 85; RESP 18; TEMP 98.6
--- NOTE | 2023-09-20 21:49 | ED ---
Nausea/Vomiting/Diarrhea HPI - General Chief complaint: Nausea/Vomiting/Diarrhea Stated complaint: NVD fever dizzy Time Seen by Provider: 09/20/23 21:48 Source: patient, RN notes reviewed Mode of arrival: ambulatory Limitations: no limitations - History of Present Illness Initial comments: 33-year-old female presenting to the ER with a chief complaint of myalgias and fevers. She states for the past 2 days she has been having allover body aches and congestion. She has been taking [id number] Advil with minor relief. She also reports diarrhea but denies abdominal pain. Denies chest pain, shortness of breath, or urinary complaints. - Related Data Home Medications Medication Instructions Recorded Confirmed Cetirizine HCl [Zyrtec] 10 mg PO DAILY 07/26/17 02/13/21 Dextroamphetamine/Amphetamine 10 mg PO PRN 02/13/21 [Adderall] Previous Rx's Medication Instructions Recorded HYDROcodone/APAP 5-325MG [[place] 5] 1 each PO Q6HR PRN #12 tab 05/19/21 Ibuprofen [Motrin] 600 mg PO Q8HR PRN #30 tab 05/19/21 Ondansetron [Zofran ODT] 4 mg PO Q8HR PRN #10 tab 05/19/21 Tamsulosin HCl [Flomax] 0.4 mg PO DAILY #7 cap 05/19/21 Allergies Allergy/AdvReac Type Severity Reaction Status Date / Time Sulfa (Sulfonamide Allergy Unknown Unknown Verified 10/18/22 11:55 Antibiotics) Childhood Review of Systems ROS Statement: Those systems with pertinent positive or pertinent negative responses have been documented in the HPI. ROS Other: All systems not noted in ROS Statement are negative. Past Medical History Additional Past Medical History / Comment(s): kidney stones, FREQ DIARRHEA FOR PAST 5 MONTHS History of Any Multi-Drug Resistant Organisms: None Reported Date of last positivie culture/infection: 2016 MDRO Source:: stool Past Surgical History: Cholecystectomy, Tubal Ligation Additional Past Surgical History / Comment(s): bilateral lithotripsy 2018 Past Anesthesia/Blood Transfusion Reactions: No Reported Reaction Past Psychological History: Depression Smoking Status: Current every day smoker, Vaper Past Alcohol Use History: None Reported Past Drug Use History: Marijuana - Past Family History Mother Family Medical History: No Reported History General Exam General appearance: alert, in no apparent distress Head exam: Present: atraumatic, normocephalic, normal inspection Eye exam: Present: normal appearance, PERRL, EOMI. Absent: scleral icterus, conjunctival injection, periorbital swelling ENT exam: Present: normal exam, normal oropharynx, mucous membranes moist, TM's normal bilaterally (erythematous) Neck exam: Present: normal inspection. Absent: tenderness, meningismus, lymphadenopathy Respiratory exam: Present: normal lung sounds bilaterally. Absent: respiratory distress, wheezes, rales, rhonchi, stridor Cardiovascular Exam: Present: regular rate, normal rhythm, normal heart sounds. Absent: systolic murmur, diastolic murmur, rubs, gallop, clicks GI/Abdominal exam: Present: soft, normal bowel sounds. Absent: distended, tenderness, guarding, rebound, rigid Neurological exam: Present: alert, oriented X3, CN II-XII intact Skin exam: Present: warm, intact, normal color Course Vital Signs 09/20/23 21:17 Temperature 98.6 F Pulse Rate 85 Respiratory 18 Rate Blood Pressure 118/84 O2 Sat by Pulse 96 Oximetry Medical Decision Making - Medical Decision Making Was pt. sent in by a medical professional or institution (, PA, LIBRARY INFORMATION TECHNICIAN, urgent care, hospital, or shelter...) When possible be specific @ -No Did you speak to anyone other than the patient for history (EMS, parent, family, police, friend...)? What history was obtained from this source @ -No Did you review nursing and triage notes (agree or disagree)? Why? @ -I reviewed and agree with nursing and triage notes Were old charts reviewed (outside hosp., previous admission, EMS record, old EKG, old radiological studies, urgent care reports/EKG's, shelter records)? Report findings @ -No old charts were reviewed Differential Diagnosis (chest pain, altered mental status, abdominal pain women, abdominal pain men, vaginal bleeding, weakness, fever, dyspnea, syncope, headache, dizziness, GI bleed, back pain, seizure, CVA, palpatations, mental health, musculoskeletal)? @ -COVID, RSV, influenza, viral sinusitis, pneumonia this list is not meant to be all-inclusive EKG interpreted by me (3pts min.). @ -None X-rays interpreted by me (1pt min.). @ -Chest x-ray interpreted by me negative for acute cardiopulmonary process. CT interpreted by me (1pt min.). @ -None done U/S interpreted by me (1pt. min.). @ -None done What testing was considered but not performed or refused? (CT, X-rays, U/S, labs)? Why? @ -None What meds were considered but not given or refused? Why? @ -None Did you discuss the management of the patient with other professionals (professionals i.e. , PA, LIBRARY INFORMATION TECHNICIAN, lab, RT, psych nurse, clinical social work aide, dormitory maid, teacher, forest fire management officer, comp field case manager)? Give summary @ -No Was smoking cessation discussed for >3mins.? @ -I discussed smoking cessation for greater than 3 minutes. The risk of smoking were discussed with the patient including but not limited to risks of cancer, stroke, coronary artery disease and COPD. Also discussed with patient were multiple methods of quitting smoking. Lastly we discussed the financial cost of smoking. Was critical care preformed (if so, how long)? @ -No Were there social determinants of health that impacted care today? How? (Homelessness, low income, unemployed, alcoholism, drug addiction, transportation, low edu. Level, literacy, decrease access to med. care, penitentiary, rehab)? @ -No Was there de-escalation of care discussed even if they declined (Discuss DNR or withdrawal of care, Hospice)? DNR status @ -No What co-morbidities impacted this encounter? (DM, HTN, Smoking, COPD, CAD, Cancer, CVA, ARF, Chemo, Hep., AIDS, mental health diagnosis, sleep apnea, morbid obesity)? @ -Obese, smoker Was patient admitted / discharged? Hospital course, mention meds given and route, prescriptions, significant lab abnormalities, going to OR and other pertinent info. @ -Discharge. 33-year-old female presented to the ER with a chief complaint of myalgias and fever. History and physical exam completed. Vitals stable. Patient in no signs of acute distress and nontoxic-appearing. Lung sounds clear to auscultation bilaterally. COVID, influenza, RSV negative. Chest x-ray interpreted by me negative for acute cardiopulmonary process. Patient received by mouth Tylenol for symptom control in the ER. Upon reevaluation, patient resting comfortably in exam room in no signs acute distress. Results discussed with patient, all questions answered. Zofran starter pack given. Advise close follow-up with PCP. Return parameters discussed. Patient verbally expressed understanding and agreement with care plan. Patient discharged in stable condition. Case discussed with ED attending, Dr. Berger. Undiagnosed new problem with uncertain prognosis? @ -No Drug Therapy requiring intensive monitoring for toxicity (Heparin, Nitro, Insulin, Cardizem)? @ -No Were any procedures done? @ -No Diagnosis/symptom? @ -Viral illness/viral sinusitis Acute, or Chronic, or Acute on Chronic? @ -Acute Uncomplicated (without systemic symptoms) or Complicated (systemic symptoms)? @ -Uncomplicated Side effects of treatment? @ -No Exacerbation, Progression, or Severe Exacerbation? @ -No Poses a threat to life or bodily function? How? (Chest pain, USA, [place], pneumonia, PE, COPD, DKA, ARF, appy, cholecystitis, CVA, Diverticulitis, Homicidal, Suicidal, threat to staff... and all critical care pts) @ -No - Lab Data Lab Results 09/20/23 Range/Units 21:55 Influenza Type A (PCR) Not Detected (Not Detectd) Influenza Type B (PCR) Not Detected (Not Detectd) RSV (PCR) Not Detected (Not Detectd) SARS-CoV-2 (PCR) Not Detected (Not Detectd) - Radiology Data Radiology results: report reviewed, image reviewed Disposition Clinical Impression: Viral illness, Acute viral sinusitis Disposition: HOME SELF-CARE Condition: Stable Instructions (If sedation given, give patient instructions): Acute Diarrhea (ED) Additional Instructions: You may take [id number] Tylenol and Motrin for fever control. Follow-up with PCP. Return to the ER for any new or worsening concerns. Is patient prescribed a controlled substance at d/c from ED?: No Referrals: Paul Granger DO [Primary Care Provider] - 1-2 days Time of Disposition: 22:58
[2023-09-20] MEDS: ACETAMINOPHEN TAB 325 MG TAB PO STA (21:56)
--- NOTE | 2023-09-20 22:05 | XR ---
EXAMINATION TYPE: XR chest 2V DATE OF EXAM: 09/20/2023 9:55 PM CLINICAL INDICATION:Female, 33 years old with history of fever; COMPARISON: None TECHNIQUE: XR chest 2V Frontal and lateral views of the chest. FINDINGS: Lungs/Pleura: There is no evidence of pleural effusion, focal consolidation, or pneumothorax. Pulmonary vascularity: Unremarkable. Heart/mediastinum: Cardiomediastinal silhouette is unremarkable. Musculoskeletal: No acute osseous pathology. IMPRESSION: No acute cardiopulmonary disease/process.
[2023-09-20] MEDS: ONDANSETRON 4 MG ODT STARTER PACK 2 TAB BTL PO STA (23:02)
== END 2023-09-20 23:03 | disposition home or self-care (01) ==
LOC: EC 20:56
DX: J01.90 Acute sinusitis, unspecified (principal); B34.9 Viral infection, unspecified; E66.9 Obesity, unspecified; F17.290 Nicotine dependence, other tobacco product, uncomplicated; Z88.2 Allergy status to sulfonamides; Z68.34 Body mass index [BMI] 34.0-34.9, adult
CPT/HCPCS: 99284; 87636; 71046; 99406; S0119

== ENCOUNTER → 2023-10-08 | Outpatient (CLI) | payer OTHER ==
[2023-10-08 14:35] LABS: Basophils # (A) 0.08 X 10*3/uL (0.00-0.10); Basophils % (A) 0.8 %; Eosinophils # (A) 0.06 X 10*3/uL (0.04-0.35); Eosinophils % (A) 0.6 %; HCT 44.8 % (37.2-46.3); HGB 14.2 g/dL (12.0-15.0); Lymphocytes # (A) 3.28 X 10*3/uL (0.90-5.00); Lymphocytes % (A) 33.3 %; MCHC 31.7 g/dL (32.0-37.0); MCV 88.4 FL (80.0-97.0); Mean Platelet Volume 9.1 FL (9.5-12.2); Monocytes # (A) 0.61 X 10*3/uL (0.20-1.00); Monocytes % (A) 6.2 %; NRBC Per 100 WBC 0 X 10*3/uL (0.00-0.01); Neutrophils # (A) 5.65 X 10*3/uL (1.80-7.70); Neutrophils % (A) 57.3 %; Platelet Count 401 X 10*3/uL (140-440); RBC 5.07 X 10*6/uL (4.10-5.20); RDW 13.7 % (11.5-14.5); WBC 9.86 X 10*3/uL (4.50-10.00)
[2023-10-08 15:09] LABS: ALT 35 U/L (8-44); AST 18 U/L (13-35); Albumin 4.3 g/dL (3.8-4.9); Albumin/Globulin Ratio 1.72 Ratio (1.60-3.17); Alkaline Phosphatase 79 U/L (41-126); BUN/Creat Ratio 19.38 Ratio (12.00-20.00); Blood Urea Nitrogen 15.5 mg/dL (9.0-27.0); Calcium 9.7 mg/dL (8.7-10.3); Carbon Dioxide 25.6 mmol/L (21.6-31.8); Chloride 107 mmol/L (96-109); Chol/HDL Ratio 3.65 Ratio; Globulin 2.5 g/dL (1.6-3.3); Glucose 96 mg/dL (70-110); Iron 44 UG/DL (50-170); Potassium 4.2 mmol/L (3.5-5.5); Sodium 144 mmol/L (135-145); Total Bilirubin 0.3 mg/dL (0.3-1.2); Total Protein 6.8 g/dL (6.2-8.2)
[2023-10-08 17:32] LABS: Follicle Stimulating Hormone 4.2 mIU/mL; Luteinizing Hormone 22.5 mIU/mL
== END | disposition home or self-care (01) ==
LOC: LABWHC1 10:07
PROVIDERS: ATTEND Nurse Practitioner Family
DX: N92.4 Excessive bleeding in the premenopausal period (principal); E66.9 Obesity, unspecified; R74.01 Elevation of levels of liver transaminase levels
CPT/HCPCS: 36415; 80053; 80061; 83001; 83002; 83036; 83540; 84146; 84403; 84439; 84443; 84481; 85025

== ENCOUNTER → 2023-11-20 | Outpatient (CLI) | payer OTHER ==
--- NOTE | 2023-11-20 22:20 | US ---
EXAMINATION TYPE: US pelvic complete DATE OF EXAM: 11/20/2023 COMPARISON: US 10/19/2023 CLINICAL INDICATION: Female, 33 years old with history of N92.4 EXCESSIVE BLEEDING IN THE PREMENOPAUS AL RUDY; Irregular bleeding. Hx 1 C section, tubal ligation. . TECHNIQUE: Transabdominal (TA). Transabdominal sonographic images of the pelvis were acquired. Date of LMP: Unknown. EXAM MEASUREMENTS: Uterus: 9.8 x 4.9 x 3.0 cm Endometrial Stripe: 0.41 cm Right Ovary: 3.7 x 2.2 x 2.2 cm Left Ovary: 4.3 x 2.4 x 2.1 cm 1. Uterus: Anteverted *Hypoechoic area seen in cervix measuring 1.8 x 1.1 x 1.3 cm, probable nabot hian cyst. 2. Endometrium: Measures 0.41 cm 3. Right Ovary: Follicles seen. 4. Left Ovary: Follicles seen. 5. Bilateral Adnexa: Appear wnl 6. Posterior cul-de-sac: Appears wnl Unremarkable anteverted uterus. Endometrium measures normal thickness. Both ovaries appear unremarkab le. No free fluid. Likely nabothian cyst. IMPRESSION: Unremarkable transabdominal pelvic ultrasound.
== END | disposition home or self-care (01) ==
LOC: RADUSWWP 10:13
PROVIDERS: ATTEND Family Medicine
DX: N92.4 Excessive bleeding in the premenopausal period (principal)
CPT/HCPCS: 76856